=== PATIENT | female | born 1955 | race Caucasian/White ===

== ENCOUNTER 2016-11-25 16:13 | Emergency (ER) | payer OTHER ==
--- NOTE | 2016-11-25 17:15 | UC ---
Dizzy HPI - History Of Current Complaint Stated Complaint: EQUILIBRIUM OFF PER PATIENT Hx Obtained From: Patient ?: No Onset/Duration: Sudden Onset - This morning after being up for an hour. Was at work about 11 AM. Neck pain down the left side into the shoulder blade. Then develop lightheadedness., Still Present - Lightheadedness still present but the neck pain is better. Timing: Constant Severity Initially: Moderate Severity Currently: Mild Character: Lightheaded Aggravating Factor(s): Headache - Occipital headache tied into the neck pain., Position Change Alleviating Factor(s): Lying Down Associated Signs And Symptoms: Positive: Diaphoresis, Unsteady Gait. Negative: Nausea, Vomiting - Allergies/Home Medications Allergies/Adverse Reactions: Allergies Allergy/AdvReac Type Severity Reaction Status Date / Time Codeine Allergy Hives Verified 11/25/16 16:24 Penicillins Allergy Hives Verified 11/25/16 16:24 Home Medications: Home Medications Gabapentin CAP(*) [Neurontin 300 CAP(*)] 300 mg PO TID 11/25/16 [History Confirmed 11/25/16] Meloxicam 7.5 mg PO BID 11/25/16 [History Confirmed 11/25/16] Simvastatin [Zocor 40 MG (NF)] 40 mg PO QPM 11/25/16 [History Confirmed 11/25/16 ] Tizanidine HCl 4 mg PO DAILY 11/25/16 [History Confirmed 11/25/16] cloNIDine TAB* [Catapres 0.1 MG TAB*] 0.2 mg PO DAILY 11/25/16 [History Confirmed 11/25/16] traMADol TAB* [Ultram*] 50 mg PO Q6HR PRN 11/25/16 [History Confirmed 11/25/16] PMH/Surg Hx/FS Hx/Imm Hx Neurological History: Migraine, Other - Torticollis Other Neurological History: Torticollis - Surgical History Surgical History: Yes Surgery Procedure, Year, and Place: knee surgery. tubal. right arm surgery 2016 - Family History Known Family History: Positive: Cardiac Disease, Diabetes Negative: Hypertension - Social History Occupation: Employed Full-time Lives: With Family Alcohol Use: Rare Substance Use Type: None Smoking Status (MU): Former Smoker Have You Smoked in the Last Year: No Review of Systems Neurological: Other - unsteady gait earlier today Psychological: Anxious All Other Systems Reviewed And Are Negative: Yes Physical Exam Triage Information Reviewed: Yes Appearance: No Pain Distress, Well-Nourished, Ill-Appearing Vital Signs: Initial Vital Signs Temp 97.7 F 11/25/16 16:19 Pulse 81 11/25/16 16:19 Resp 18 11/25/16 16:19 BP 146/82 11/25/16 16:19 Pulse Ox 100 11/25/16 16:19 Vital Signs Reviewed: Yes Eyes: Positive: Conjunctiva Clear ENT Exam: Normal Neck: Positive: Tenderness @ - left cervical spinal musculature Respiratory Exam: Normal Cardiovascular: Positive: Murmur:Sys:Grade _?_/ - 2/6 Abdominal Exam: Normal Bowel Sounds: Positive: Present Musculoskeletal Exam: Normal Neurological Exam: Other - Normal heel-dunn, and heel-toe walking. Neurological: Positive: Other: - Tremor head and neck and intension tremor. Psychological Exam: Normal Skin Exam: Normal Dizzy Course/Dx - Differential Dx/Diagnosis Differential Diagnosis/HQI/PQRI: Anxiety, CVA, Hypovolemia, Transient Ischemic Attack Provider Diagnoses: TIA. Headache - Physician Notifications Discussed Patient Care With: Nimco Bueno - Agreed to accept transfer Time Discussed With Above Provider: 17:33 Instructed by Provider To: Transfer - [facility] for further evaluation Discharge - Discharge Plan Condition: Guarded Disposition: TRANS HIGHER LVL OF CARE FAC Patient Education Materials: Transient Ischemic Attack (ED)
[2016-11-25 17:34] VITALS: BP 148/89
== END 2016-11-25 17:44 | disposition short-term general hospital (02) ==
LOC: UCCORT 16:13
DX: G45.9 Transient cerebral ischemic attack, unspecified (principal); R51 Headache; M54.2 Cervicalgia; M25.512 Pain in left shoulder; R42 Dizziness and giddiness; R26.81 Unsteadiness on feet; R61 Generalized hyperhidrosis; Z88.5 Allergy status to narcotic agent; Z88.0 Allergy status to penicillin; Z87.891 Personal history of nicotine dependence
CPT/HCPCS: 93005; 99213; G0463

== ENCOUNTER 2019-06-06 10:59 | Inpatient (IN) | payer OTHER ==
--- NOTE | 2019-05-30 13:25 | HP ---
HISTORY AND PHYSICAL: DATE OF ADMISSION/SURGERY: 06/06/19 DATE OF OFFICE VISIT: 05/30/19 SURGEON: Jody Gomez MD * (DICTATED BY RIGOBERTO PERKINS) PROCEDURE: Left total knee arthroplasty. CHIEF COMPLAINT: Left knee pain. HISTORY OF PRESENT ILLNESS: Ms. Elizalde is a 63-year-old female with end-stage osteoarthritis of the left knee. She has failed conservative treatment and elected to proceed with a left total knee arthroplasty. PAST MEDICAL HISTORY: High cholesterol, spasmodic torticollis, and a history of DVT 20 years ago. PAST SURGICAL HISTORY: Left knee arthroscopy and tubal ligation. CURRENT MEDICATIONS: 1. Tramadol 50 mg every 4 hours as needed. 2. Stool softener. 3. Clonidine 0.2 mg twice a day. 4. Simvastatin 40 mg daily. 5. Clonazepam 1 mg twice a day. 6. Baclofen 10 mg every 8 hours as needed. 7. Sumatriptan 50 mg as needed. 8. Meloxicam 7.5 mg twice a day. 9. Vitamin D. 10. Calcium. ALLERGIES: To PENICILLIN, CODEINE, HYDROCODONE, TOPIRAMATE, and PREDNISONE. FAMILY HISTORY: Diabetes, coronary artery disease, cancer, RA, and Alzheimer's. SOCIAL HISTORY: She is a 63-year-old female. She lives with her boy friend. She does not smoke or use drugs. She uses alcohol occasionally. REVIEW OF SYSTEMS: A complete 14-point review of systems was reviewed with the patient. It was positive for history of a DVT. She denies a history of PE, hepatitis, HIV, or anesthesia problems. PHYSICAL EXAMINATION GENERAL: She is well developed, well nourished, in no acute distress. VITAL SIGNS: She stands 62-1/2 inches tall, weighs 128 pounds. Her blood pressure is 110/68 and heart rate is 60. HEENT: Normocephalic, atraumatic. NECK: Supple. No palpable lymph nodes. PULMONARY: The lungs are clear to auscultation bilaterally. CARDIO: Regular rate and rhythm. Strong S1, S2. ABDOMEN: Soft, nontender, nondistended. NEUROLOGICAL: She is alert and oriented x3. MUSCULOSKELETAL: Left lower extremity: The skin is intact. There are no open wounds or abrasions. There is moderate effusion of the left knee joint. She has some tenderness along the medial joint line. Range of motion is 10 to 120 degrees of flexion. She is able to dorsiflex and plantarflex, has 2+ dorsalis pedis pulse and intact sensation. ASSESSMENT AND PLAN: Ms. Elizalde is a 63-year-old female with end-stage osteoarthritis of the left knee. She has failed conservative treatment and elected to proceed with a left total knee arthroplasty. The surgery is scheduled for 06/06/[address] Gomez discussed the risks and benefits of the surgery at today's visit and all of her questions were answered. She will follow up with Dr. Gomez 2 weeks after the surgery. RIGOBERTO PERKINS [id number]/CPS #: [id number] MTDD
[~2019-06-06 10:59] MED LIST: Buffered Lidocaine 1% SYRIN* 1 ML/SYRINGE INTRADERM ONE; Dexamethasone TAB* 4 MG PO ONE; DiMENhydriNATE IV* 50 MG/ML VIAL IV PUSH PRN; Famotidine IV* 10 MG/ML 2 ML (20 mg) IV ONE; HYDROmorphone INJ1* 1 MG/ML SYRINGE IV PRN; Lactated Ringers 1000 ML Bag* 1,000 ML IV SCH; Naloxone* 0.4 MG/ML 1 ML VIAL IV PRN; Ondansetron ODT TAB* 4 MG PO ONE; PROCHLORPERAZINE INJ 5 MG/ML 2 ML VIAL IV PRN; fentaNYL* 50 MCG/ML 2 ML VIAL (100 MCG VIAL) IV PRN; oxyCODONE TAB* 5 MG TAB PO PRN
--- OUTSIDE RECORDS SUMMARY | 2019-06-06 11:03 | XMS REPORT | Continuity of Care Document ---
:1955 External Reference #:[id number] Author Name Jody Gomez M.D. (transmitted by agent of provider Sofia Chung) Address [address] [place] [id number] Care Team Providers Name Role Phone Muriel Thakur RPA - Medical Care Team Information Hog Cutter KamariShana Bennett MD - Care Team Information Hog Cutter Neurology Beny Chow M.D. - Rheumatology Care Team Information Hog Cutter [phone] Waleska Zavala MD - Interventional Pain Care Team Information Hog Cutter [phone] Medicine Waleska Zavala MD - Interventional Pain Care Team Information Hog Cutter Medicine Problems Active Problems Provider Date Hyperlipidemia Muriel Thakur, PA Onset: 11/19/2018 Spasmodic torticollis Muriel Thakur PA Onset: 11/19/2018 Note: cervical dystonia, Botox History of polyp of colon Muriel Thakur, PA Onset: 11/19/2018 Note: hyperplastic 2009 Raised antinuclear antibody Muriel Thakur, PA Onset: 11/19/2018 Note: Undifferentiated CTD 2013 Deep venous thrombosis of lower extremity Muriel Thakur PA Onset: 2018 Note: (L) side, while on HRT Degenerative joint disease involving multiple Muriel Thakur, PA Onset: joints Note: ankles, knees, cervical spine Headache Muriel Thakur, PA Onset: 11/19/2018 Note: Occipital neuralgia, migraine Menopausal flushing Muriel Thakur PA Onset: 11/19/2018 Note: clonidine Localized, primary osteoarthritis Jody Gomez M.D. Onset: 05/02/2019 Social History Type Date Description Comments Sex Unknown ETOH Use Occasionally consumes alcohol Tobacco Use Start: Unknown End: Patient is a former smoker Recreational Drug Use Denies Drug Use Smoking Status Reviewed: 05/30/19 Patient is a former smoker Exercise Type/Frequency Does not exercise Allergies, Adverse Reactions, Alerts Active Allergies Reaction Severity Comments Date Penicillins rash 07/16/2018 Codeine Hives 07/16/2018 Hydrocodone Hives 07/16/2018 Topiramate 11/19/2018 Prednisone 02/05/2019 Medications Active Medications SIG Qnty Indications Ordering Provider Date Cipro 1 tab by mouth 14tabs Jermaine 05/21/2019 500mg Tablets twice a day MD Cody Miralax 17 gm every day 510gm K59.00 Jermaine 05/19/2019 3350NF Powder mixed w/ 8 oz MD Cody water/juice daily prn. Probiotic 1 by mouth every 90caps K59.00 Jermaine 05/19/2019 Acidophilus day MD Cody Capsules Colace 2-3 tabs by mouth 90caps K59.00 Jermaine 05/19/2019 100mg Capsules with fiber cereal MD Cody q Am as needed Tramadol HCL Take 1 Tablet By 120tabs Jermaine 07/16/2018 50mg Mouth Every 4 MD Cody Tablets Hours as Needed For Pain* Maximum Daily Dose Is 6 Tablets* Clonidine HCL Take 1 Tablet By 180tabs Jermaine 07/16/2018 0.2mg Mouth Twice Daily MD Cody Tablets Simvastatin Take 1 Tablet By 90tabs Jermaine 07/16/2018 40mg Mouth Every Day MD Cody Tablets Clonazepam for dystonia Waleska Zavala MD 1mg bid. Tablets Baclofen take one tablet Waleska Zavala MD 10mg Tablets by mouth every 8 hours as needed Sumatriptan take one tablet Waleska Zavala MD Succinate by mouth at the 50mg start of the Tablets headache; may repeat the dose in 2 hours if needed Meloxicam 1 by mouth twice Beny Chow, 7.5mg a day M.D. Tablets Vitamin D 2000 Iu daily Unknown Calcium + D Unknown Immunizations CPT Code Status Date Vaccine Reaction Lot # [id number] Given 02/05/2019 Pneumonia Vaccine risk & benefits [id number] pneumovax discussed [id number] Given 02/05/2019 Tdap - risk & benefits Tdap/2E3EH/Private Tetanus/Diptheria/Ac discussed ellular Pertussis Vital Signs Date Vital Result Comment 05/30/2019 8:20am Height 62.5 inches 5'2.50" Weight 128.00 lb Heart Rate 60 /min BP Systolic 110 mmHg BP Diastolic 68 mmHg Respiratory Rate 12 /min Body Temperature 97.5 F Pain Level 5 BMI (Body Mass Index) 23.0 kg/m2 05/19/2019 9:59am Height 63.25 inches 5'3.25" Weight 129.12 lb Heart Rate 64 /min BP Systolic Sitting 108 mmHg BP Diastolic Sitting 68 mmHg O2 % BldC Oximetry 93 % BMI (Body Mass Index) 22.7 kg/m2 Results Test Acquired Date Facility Test Result H/L Range Note Urinalysis Profile 05/29/2019 [facility] Urine Color Yellow [address] [place] [address] [phone] Urine Appearance Turbid Urine Specific [place] 1.028 Normal 1.010-1.030 Urine pH 5.0 Normal 5-9 Urine Urobilinogen Negative Negative Urine Ketones Negative Negative Urine Protein Negative Negative Urine Leukocytes Negative Negative Urine Blood Negative Negative Urine Nitrite Negative Negative Urine Bilirubin Negative Negative Urine Glucose Negative Negative CBC W/Auto 05/20/2019 [facility] White Blood 3.2 10^3/uL Low 3.5-10.[address] [place] [address] [phone] Red Blood Count 4.36 10^6/uL Normal 3.70-4.87 Hemoglobin 13.5 g/dL Normal 12.0-16.0 Hematocrit 39 % Normal 35-47 Mean Corpuscular Volume 90 fL Normal 80-97 Mean Corpuscular Hemoglobin 31 pg Normal 27-31 Mean Corpuscular HGB Conc 35 g/dL Normal 31-36 Red Cell Distribution Width 13 % Normal 10-15 Platelet Count 206 10^3/uL Normal 150-450 Mean Platelet Volume 8.6 fL Normal 7.4-10.4 Abs Neutrophils 1.5 10^3/uL Normal 1.5-7.7 Abs Lymphocytes 1.3 10^3/uL Normal 1.0-4.8 Abs Monocytes 0.3 10^3/uL Normal 0-0.8 Abs Eosinophils 0.1 10^3/uL Normal 0-0.6 Abs Basophils 0.0 10^3/uL Normal 0-0.2 Abs Nucleated RBC 0.0 10^3/uL Granulocyte % 45.8 % Lymphocyte % 38.9 % Monocyte % 10.1 % Eosinophil % 3.9 % Basophil % 1.3 % Nucleated Red Blood Cells % 0.0 CMP Panel 05/20/2019 [facility] Sodium 142 mmol/L Normal 135- 145 [address] [place] [address] [phone] Potassium 4.0 mmol/L Normal 3.5-5.0 Chloride 106 mmol/L Normal 101-111 Co2 Carbon Dioxide 31 mmol/L Normal 22-32 Anion Gap 5 mmol/L Normal 2-11 Glucose 93 mg/dL Normal 70-100 Blood Urea Nitrogen 20 mg/dL Normal 6-24 Creatinine 0.85 mg/dL Normal 0.51-0.95 BUN/Creatinine Ratio 23.5 High 8-20 Calcium 10.0 mg/dL Normal 8.6-10.3 Total Protein 6.3 g/dL Low 6.4-8.9 Albumin 4.3 g/dL Normal 3.2-5.2 Globulin 2.0 g/dL Normal 2-4 Albumin/Globulin Ratio 2.2 Normal 1-3 Total Bilirubin 0.40 mg/dL Normal 0.2-1.0 Alkaline Phosphatase 62 U/L Normal 34-104 Alt 14 U/L Normal 7-52 Ast 14 U/L Normal 13-39 Egfr Non- 67.8 >60 Egfr 82.0 >60 1 Urinalysis Profile 05/19/2019 [facility] Urine Color Yellow [address] [place] [address] [phone] Urine Appearance Cloudy Urine Specific [place] 1.028 Normal 1.010-1.030 Urine pH 5.0 Normal 5-9 Urine Urobilinogen Negative Negative Urine Ketones Negative Negative Urine Protein Negative Negative Urine Leukocytes Trace Abnormal Negative Urine Blood Negative Negative Urine Nitrite Negative Negative Urine Bilirubin Negative Negative Urine Glucose Negative Negative Urine White Blood Cell Trace(0-5/hpf) Absent Urine Red Blood Cell Absent Absent Urine Bacteria 2+ Abnormal Absent Urine Squamous Epithelial Cell Present Abnormal Absent Urine Hyaline Casts Present Abnormal Absent Urine Calcium Oxalate Cryst Present Abnormal Absent Urine Culture And 05/19/2019 [facility] Urine Culture SEE RESULT [address] [place] [address] [phone] Lipid Panel 04/16/2019 [facility] Triglycerides 67 mg/dL [address] [place] [address] [phone] Cholesterol 182 mg/dL 4 HDL Cholesterol 73.7 mg/dL 5 LDL Cholesterol 95 mg/dL 6 CMP Panel 04/16/2019 [facility] Sodium 144 mmol/L Normal 135- [address] [place] [address] [phone] Potassium 4.0 mmol/L Normal 3.5-5.0 Chloride 108 mmol/L Normal 101-111 Co2 Carbon Dioxide 33 mmol/L High 22-32 Anion Gap 3 mmol/L Normal 2-11 Glucose 80 mg/dL Normal 70-100 Blood Urea Nitrogen 15 mg/dL Normal 6-24 Creatinine 0.82 mg/dL Normal 0.51-0.95 BUN/Creatinine Ratio 18.3 Normal 8-20 Calcium 9.4 mg/dL Normal 8.6-10.3 Total Protein 5.6 g/dL Low 6.4-8.9 Albumin 3.9 g/dL Normal 3.2-5.2 Globulin 1.7 g/dL Low 2-4 Albumin/Globulin Ratio 2.3 Normal 1-3 Total Bilirubin 0.50 mg/dL Normal 0.2-1.0 Alkaline Phosphatase 58 U/L Normal 34-104 Alt 22 U/L Normal 7-52 Ast 15 U/L Normal 13-39 Egfr Non- 70.6 >60 Egfr 85.5 >60 7 CBC W/Auto 04/16/2019 [facility] White Blood 4.5 10^3/uL Normal 3.5-10.[address] [place] [address] [phone] Red Blood Count 4.24 10^6/uL Normal 3.70-4.87 Hemoglobin 12.9 g/dL Normal 12.0-16.0 Hematocrit 38 % Normal 35-47 Mean Corpuscular Volume 90 fL Normal 80-97 Mean Corpuscular Hemoglobin 31 pg Normal 27-31 Mean Corpuscular HGB Conc 34 g/dL Normal 31-36 Red Cell Distribution Width 13 % Normal 10-15 Platelet Count 218 10^3/uL Normal 150-450 Mean Platelet Volume 8.6 fL Normal 7.4-10.4 Abs Neutrophils 2.1 10^3/uL Normal 1.5-7.7 Abs Lymphocytes 1.9 10^3/uL Normal 1.0-4.8 Abs Monocytes 0.3 10^3/uL Normal 0-0.8 Abs Eosinophils 0.2 10^3/uL Normal 0-0.6 Abs Basophils 0.0 10^3/uL Normal 0-0.2 Abs Nucleated RBC 0.0 10^3/uL Granulocyte % 46.2 % Lymphocyte % 42.5 % Monocyte % 7.2 % Eosinophil % 3.6 % Basophil % 0.5 % Nucleated Red Blood Cells % 0.1 Laboratory 04/16/2019 [facility] TSH (Thyroid 2.42 Normal 0.34 -5.60 test finding [address] Stim Horm) mcIU/[place] [address] [phone] Vitamin D Total 25(Oh) 34.3 ng/mL Normal 20-50 8 Cytology 02/05/2019 [facility] Cytology SEE RESULT BELOW , [address] [place] [address] [phone] PDFReport SEE IMAGE 1 Because ethnic data is not always readily available, this report includes an eGFR for both -Americans and non- Americans. The National Kidney Disease Education Program (NKDEP) does not endorse the use of the MDRD equation for patients that are not between the ages of 18 and 70, are , have extremes of body size, muscle mass, or nutritional status, or are non- or non-. According to the National Kidney Foundation, irrespective of diagnosis, the stage of the disease is based on the level of kidney function: Stage Description GFR(mL/min/1.73 m(2)) 1 Kidney damage with normal or decreased GFR 90 2 Kidney damage with mild decrease in GFR 60-89 3 Moderate decrease in GFR 30-59 4 Severe decrease in GFR 15-29 5 Kidney failure <15 (or dialysis) 2 SEE RESULT BELOW Name: MANDY ELIZALDE : [address]: Muriel FRANKLIN Acct: [id number] Unit: [id number] AGE: 63 Location: [facility] Re05/19/19 SEX: F Status: REG REF SPEC: [id number] PATRICK: 05/19/19-[address]: Muriel FRANKLIN REQ: [id number] RECD: 05/19/19-1440 STATUS: COMP _ SOURCE: URINE SPDESC: ORDERED: Urine Culture COMMENTS: [id number] Urine Source: Random Procedure Result Reported Site Urine Culture Final 02/915 ML Organism 1 ESCHERICHIA COLI Ramer Count 75-100,000 (Many) CFU/ML 1. ESCHERICHIA COLI M.I.C. RX --------- ------ Ampicillin <=2 S Cefazolin <=4 S Cefepime <=1 S Ceftriaxone <=1 S Ciprofloxacin <=0.25 S Gentamicin <=1 S Levofloxacin <=0.12 S Meropenem <=0.25 S Nitrofurantoin <=16 S Tetracycline >=16 R Pipercillin/Tazobactam <=4 S Trimethoprim/Sulfamethoxazole <=20 S Amoxicillin/Clavulanic Acid <=2 S Aztreonam <=1 S Contact the Microbiology Department for any additional antibiotic reporting. * ML - Main Lab . END OF REPORT DEPARTMENT OF PATHOLOGY, [address] [place] [address] Keenan Magana M.D. Director [facility] # [id number] 3 Desirable: <150 Borderline High: 150-199 High: 200-499 Very High: >500 4 Desirable: <200 Borderline High: 200-239 High: >239 5 Low: <40 Desirable: 40-60 High: >60 6 Desirable: <100 Near Optimal: 100-129 Borderline High: 130-159 High: 160-189 Very High: >189 7 Because ethnic data is not always readily available, this report includes an eGFR for both -Americans and non- Americans. The National Kidney Disease Education Program (NKDEP) does not endorse the use of the MDRD equation for patients that are not between the ages of 18 and 70, are , have extremes of body size, muscle mass, or nutritional status, or are non- or non-. According to the National Kidney Foundation, irrespective of diagnosis, the stage of the disease is based on the level of kidney function: Stage Description GFR(mL/min/1.73 m(2)) 1 Kidney damage with normal or decreased GFR 90 2 Kidney damage with mild decrease in GFR 60-89 3 Moderate decrease in GFR 30-59 4 Severe decrease in GFR 15-29 5 Kidney failure <15 (or dialysis) 8 Total 25-Hydroxyvitamin D2 and D3 (25-OH-VitD) <10 ng/mL (severe deficiency) 10-19 ng/mL (mild to moderate deficiency) 20-50 ng/mL (optimum levels) 51-80 ng/mL (increased risk of hypercalciuria) >80 ng/mL (toxicity possible) 9 [id number] 10 SEE RESULT BELOW Name: MANDY ELIZALDE : [address]: Muriel FRANKLIN Acct: [id number] Unit: [id number] AGE: 63 Location: [facility] Re02/05/19 SEX: F Status: REG REF SPEC: [id number] PATRICK: 02/05/1958 [facility] DR: Muriel FRANKLIN REQ: [id number] RECD: 02/05/19 STATUS: SOUT _ ORDERED: TP IMAGE ANALYS, HPV/Thin Prep COMMENTS: [id number] FINAL DIAGNOSIS Negative for Intraepithelial lesion or Malignancy HPV RESULTS Date Time Test Result Flag (u) Normal Range 02/05/19 1000 HPV KATERINA Negative Negative The high-risk HPV types detected by the assay include: 16, 18, 31, 33, 35, 39, 45, 51, 52, 56, 58, 59, 66, and 68. SPECIMEN(S) RECEIVED A. Ectocervical/Endocervical CYTOLOGY ADEQUACY Specimen Adequacy: Satisfactory of evaluation Transformation zone component identified CONTINUED ON NEXT PAGE DEPARTMENT OF PATHOLOGY, [address] [place] [address] Keenan Magana M.D. Director [facility] # [id number] CYTOLOGY PATIENT INFORMATION Patient Information: HPV: High risk HPV RNA testing regardless of pap results. Actual Specimen Date: 02/05/19 LMP If Unknown: 2003 ablation ?: N Post Menopausal?: Y Hysterectomy?: N Previous Abnormal Pap Smears?:N Signed by and Reported on: LYNN Garcia (ASCP) 1606 This Pap test was evaluated with the assistance of the [employer] Test Imaging System. Due to cytologic findings at the metal storage worker microscope, comprehensive manual rescreening by a Information Officer may be required. The Pap Smear is a screening test designed to aid in the detection of premalignant and malignant conditions of the uterine cervix. It is not a diagnostic procedure and should not be used as the sole means of detecting cervical cancer. Both false- positive and false- negative reports do occur. Depending on your risk status, a Pap smear should be obtained and evaluated every 1-3 years. END OF REPORT DEPARTMENT OF PATHOLOGY, [address] [place] [address] Keenan Magana M.D. Director [facility] # [id number] Procedures Date Code Description Status 04/16/2019 91545 Xray Knee 3 Views Completed 12/16/2018 [id number] Mammogram Completed 10/08/2017 [id number] Mammogram Completed 10/03/2016 [id number] Mammogram Completed 10/01/2015 [id number] Mammogram Completed 06/16/2009 [id number] Colonoscopy Completed Medical Devices Description No Information Available Encounters Type Date Location Provider Dx Diagnosis Office Visit 05/02/2019 [facility] Opal Pantoja7.12 Unilateral primary 9:00a at [facility] osteoarthritis, left knee M25.562 Pain in left knee M25.462 Effusion, left knee Office Visit 04/16/2019 Wendy Anthony M17.12 Unilateral primary 9:30a Orthopedics at [facility] osteoarthritis, left Lev knee M06.862 Other specified rheumatoid arthritis, left knee M25.562 Pain in left knee Office Visit 02/05/2019 9:00a [employer] Primary Muriel Z00.00 Encntr for Care RIGOBERTO Thkaur general adult medical exam w/o abnormal findings G24.3 Spasmodic torticollis E78.5 Hyperlipidemia, unspecified Z23 Encounter for immunization Z12.4 Encounter for screening for malignant neoplasm of cervix Assessments Date Code Description Provider 05/30/2019 M25.562 Pain in left knee Jody Gomez M.D. 05/30/2019 M25.462 Effusion, left knee Jody Gomez M.D. 05/19/2019 Z01.818 Encounter for other preprocedural examination RIGOBERTO Sellers 05/19/2019 M17.12 Unilateral primary osteoarthritis, left knee Muriel RIGOBERTO Thakur 05/19/2019 M06.4 Inflammatory polyarthropathy RIGOBERTO Sellers 05/19/2019 G24.3 Spasmodic torticollis RIGOBERTO Sellers 05/19/2019 K59.00 Constipation, unspecified Muriel Thakur, RIGOBERTO 05/19/2019 R82.81 Pyuria RIGOBERTO Sellers 05/02/2019 M17.12 Unilateral primary osteoarthritis, left knee Jody Gomez M.D. 05/02/2019 M25.562 Pain in left knee Jody Gomez M.D. 05/02/2019 M25.462 Effusion, left knee Jody Gomez M.D. 04/16/2019 M17.12 Unilateral primary osteoarthritis, left knee Jason Hollingsworth MD 04/16/2019 M06.862 Other specified rheumatoid arthritis, left Jason Hollingsworth MD knee 04/16/2019 M25.562 Pain in left knee Jason Hollingsworth MD 02/05/2019 Z00.00 Encounter for general adult medical RIGOBERTO Sellers examination without abnormal findings 02/05/2019 G24.3 Spasmodic torticollis RIGOBERTO Sellers 02/05/2019 E78.5 Hyperlipidemia, unspecified RIGOBERTO Sellers 02/05/2019 Z23 Encounter for immunization RIGOBERTO Sellers 02/05/2019 Z12.4 Encounter for screening for malignant RIGOBERTO Sellers neoplasm of cervix Plan of Treatment Future Appointment(s):06/23/2019 11:15 am - Jody Gomez M.D. at [facility] at Nrmmiy4011/17/2019 10:30 am - RIGOBERTO Sellers at [facility]06/06/2019 12:30 pm - Jody Gomez M.D. at [facility] at Meprwt5005/2019 9:00 am - RIGOBERTO Sellers at [facility]05/30/2019 - Jody Gomez M.D.M25.562 Pain in left kneeFollow up:Follow up: 2 weeks after nyjdtuyI59.462 Effusion, left knee Functional Status Description No Information Available Mental Status Description No Information Available Referrals Description No Information Available
--- OUTSIDE RECORDS SUMMARY | 2019-06-06 11:03 | XMS REPORT | Continuity of Care Document ---
:1955 External Reference #:[id number] Author Name RIGOBERTO Sellers (transmitted by agent of provider Magaly Diallo) Address [address] [place] [address] Care Team Providers Name Role Phone Muriel Thakur RPA - Medical Care Team Information Senior Mechanical Estimator Shana Saenz MD - Care Team Information Senior Mechanical Estimator [phone] Neurology Beny Chow M.D. - Rheumatology Care Team Information Senior Mechanical Estimator Waleska Zavala MD - Interventional Pain Care Team Information Senior Mechanical Estimator Medicine Waleska Zavala MD - Interventional Pain Care Team Information Senior Mechanical Estimator [phone] Medicine Problems Active Problems Provider Date Hyperlipidemia RIGOBERTO Sellers Onset: 11/19/2018 Spasmodic torticollis RIGOBERTO Sellers Onset: 11/19/2018 Note: cervical dystonia, Botox History of polyp of colon Muriel Thakur PA Onset: 11/19/2018 Note: hyperplastic 2009 Raised antinuclear antibody Muriel Thakur PA Onset: 11/19/2018 Note: Undifferentiated CTD 2013 Deep venous thrombosis of lower extremity RIGOBERTO Sellers Onset: 2018 Note: (L) side, while on HRT Degenerative joint disease involving multiple Muriel Thakur PA Onset: joints Note: ankles, knees, cervical spine Headache Muriel Thakur PA Onset: 11/19/2018 Note: Occipital neuralgia, migraine Menopausal flushing Muriel Thakur PA Onset: 11/19/2018 Note: clonidine Localized, primary osteoarthritis Jody Gomez M.D. Onset: 05/02/2019 Social History Type Date Description Comments Sex Unknown ETOH Use Occasionally consumes alcohol Tobacco Use Start: Unknown End: Patient is a former smoker Recreational Drug Use Denies Drug Use Smoking Status Reviewed: 05/19/19 Patient is a former smoker Exercise Type/Frequency Does not exercise Allergies, Adverse Reactions, Alerts Active Allergies Reaction Severity Comments Date Penicillins rash 07/16/2018 Codeine Hives 07/16/2018 Hydrocodone Hives 07/16/2018 Topiramate 11/19/2018 Prednisone 02/05/2019 Medications Active Medications SIG Qnty Indications Ordering Provider Date Miralax 17 gm every day 510gm K59.00 [...] Code Status Date Vaccine Reaction Lot # 79662 Given 02/05/2019 Pneumonia Vaccine risk & benefits [id number] pneumovax discussed 23 08399 Given 02/05/2019 Tdap - risk & benefits Tdap/2E3EH/Private Tetanus/Diptheria/Ac discussed ellular Pertussis Vital Signs Date Vital Result Comment 05/19/2019 9:59am Height 63.25 inches 5'3.25" Weight 129.12 lb Heart Rate 64 /min BP Systolic Sitting 108 mmHg BP Diastolic Sitting 68 mmHg O2 % BldC Oximetry 93 % BMI (Body Mass Index) 22.7 kg/m2 05/02/2019 9:06am Height 63.25 inches 5'3.25" Weight 126.00 lb Heart Rate 42 /min BP Systolic 100 mmHg BP Diastolic 62 mmHg Respiratory Rate 12 /min Body Temperature 96.4 F Pain Level 2 BMI (Body Mass Index) 22.1 kg/m2 Results Test Acquired Date Facility Test Result H/L Range Note Lipid Panel 04/16/2019 [facility] Triglycerides 67 mg/dL 1 [address] [place] [address] [phone] Cholesterol 182 mg/dL 2 HDL Cholesterol 73.7 mg/dL 3 LDL Cholesterol 95 mg/dL 4 CMP Panel 04/16/2019 [facility] Sodium 144 mmol/L Normal 135- 145 [address] [place] [address] [phone] Potassium 4.0 mmol/L Normal 3.5-5.0 Chloride 108 [...] Egfr Non- 70.6 >60 Egfr 85.5 >60 5 CBC W/Auto 04/16/2019 [facility] White Blood 4.5 10^3/uL Normal 3.5-10.[address] [place] [address] [phone] Red Blood Count 4.24 10^6/uL Normal 3.70-4.87 [...] Red Blood Cells % 0.1 Laboratory 04/16/2019 [facility] TSH (Thyroid 2.42 Normal 0.34 -5.60 test finding [address] Stim Horm) mcIU/[place] [address] [phone] Vitamin D Total 25(Oh) 34.3 ng/mL Normal 20-50 6 Cytology 02/05/2019 [facility] Cytology SEE RESULT BELOW 7 , [address] [place] [address] [phone] PDFReport SEE IMAGE 1 Desirable: <150 Borderline High: 150-199 High: 200-499 Very High: >500 2 Desirable: <200 Borderline High: 200-239 High: >239 3 Low: <40 Desirable: 40-60 High: >60 4 Desirable: <100 Near Optimal: 100-129 Borderline High: 130-159 High: 160-189 Very High: >189 5 Because ethnic data is not always readily [...] 15-29 5 Kidney failure <15 (or dialysis) 6 Total 25-Hydroxyvitamin D2 and D3 (25-OH-VitD) <10 ng/mL (severe deficiency) 10-19 ng/mL (mild to moderate deficiency) 20-50 ng/mL (optimum levels) 51-80 ng/mL (increased risk of hypercalciuria) >80 ng/mL (toxicity possible) 7 [id number] 8 SEE RESULT BELOW Name: MANDY ELIZALDE : [address]: Muriel FRAKNLIN Acct: [id number] Unit: [id number] AGE: 63 Location: [facility] Re02/05/19 SEX: F Status: REG REF SPEC: [id number] PATRICK: 02/05/190959 SUBM DR: Muriel FRANKLIN REQ: [id number] RECD: 02/05/19 STATUS: SOUT _ ORDERED: TP IMAGE ANALYS, HPV/Thin Prep COMMENTS: [id number] FINAL DIAGNOSIS Negative for Intraepithelial lesion or [...] CONTINUED ON NEXT PAGE DEPARTMENT OF PATHOLOGY, [address] [place] [address] Keenan Magana M.D. Director [facility] # [id number] CYTOLOGY PATIENT INFORMATION Patient Information: HPV: High risk HPV RNA testing regardless of pap results. Actual Specimen Date: 02/05/19 LMP If Unknown: 2003 ablation ?: N Post Menopausal?: Y Hysterectomy?: N Previous Abnormal Pap Smears?:N Signed by and Reported on: LYNN Garcia (ASCP) 1600 This Pap test was evaluated with the assistance of the [employer]Prep Test Imaging System. Due to cytologic findings at the clinical informatics manager microscope, comprehensive manual rescreening by a Staffing Consultant may be required. The Pap Smear is [...] years. END OF REPORT DEPARTMENT OF PATHOLOGY, [address] [place] [address] Keenan Magana M.D. Director [facility] # [id number] Procedures Date Code Description Status 04/16/2019 93954 Xray Knee 3 Views Completed 12/16/2018 [id number] Mammogram Completed 10/08/2017 [id number] Mammogram Completed 10/03/2016 [id number] Mammogram Completed 10/01/2015 [id number] Mammogram Completed 06/16/2009 [id number] Colonoscopy Completed Medical Devices Description No Information Available Encounters Type Date Location Provider Dx Diagnosis Office Visit 05/02/2019 [facility] Jody Gomez M17.12 Unilateral primary 9:00a at [facility] osteoarthritis, left knee M25.562 Pain in left knee M25.462 Effusion, left knee Office Visit 04/16/2019 Wendy Anthony M17.12 Unilateral primary 9:30a Orthopedics at [facility] [place] osteoarthritis, left [place] knee M06.862 Other specified rheumatoid arthritis, left knee M25.562 Pain in left knee Office Visit 02/05/2019 9:00a [facility] Muriel Z00.00 Encntr for Care RIGOBERTO Thakur general adult medical exam w/o abnormal findings G24.3 Spasmodic torticollis E78.5 Hyperlipidemia, unspecified Z23 Encounter for immunization Z12.4 Encounter for screening for malignant neoplasm of cervix Assessments Date Code Description Provider 05/19/2019 Z01.818 Encounter for other preprocedural examination RIGOBERTO Sellers 05/19/2019 M17.12 Unilateral primary osteoarthritis, left knee Muriel Ofe, PA 05/19/2019 M06.4 Inflammatory polyarthropathy Muriel Thakur, PA 05/19/2019 G24.3 Spasmodic torticollis Muriel Ofe, PA 05/19/2019 K59.00 Constipation, unspecified Muriel Ofe, PA 05/02/2019 M17.12 Unilateral primary osteoarthritis, left knee [...] without abnormal findings 02/05/2019 G24.3 Spasmodic torticollis Muriel Thakur, PA 02/05/2019 E78.5 Hyperlipidemia, unspecified Muriel Thakur, RIGOBERTO 02/05/2019 Z23 Encounter for immunization RIGOBERTO Sellers 02/05/2019 Z12.4 Encounter for screening for malignant RIGOBERTO Sellers neoplasm of cervix Plan of Treatment Future Appointment(s):11/17/2019 10:30 am - RIGOBERTO Sellers at [facility]05/30/2019 8:30 am - Jody Gomez M.D. at [facility] at [id number] 12:30 pm - Jody Gomez M.D. at [facility] at Owxbbk9502/09/2020 9:00 am - RIGOBERTO Sellers at [facility]05/19/2019 - Muriel Thakur PAZ01.818 Encounter for other preprocedural cpbgsfokzquM63.12 Unilateral primary osteoarthritis, left kneeNew Labs:CBC W/Auto Diff, Ordered: 05/19/19M06.4 Inflammatory polyarthropathyNew Labs:CMP Panel, Ordered: Comments:UCTD, followed by rheumatology, Ron Chow MDG24.3 Spasmodic torticollisComments:Botox treatment has been initiated, Waleska Zavala MD @ [facility] &amp ; WOther treatments managed by Dr Zavala >> clonazepam, sumatriptan, zyexyghbV07.00 Constipation, unspecifiedNew Medication:Miralax 3350 NF - 17 gm every day mixed w/ 8 oz water/juice daily prn.Probiotic Acidophilus - 1 by mouth every dayColace 100 mg - 2-3 tabs by mouth with fiber cereal q Am as neededAllComments:Forms completed. DMV parking and Health Care ProxyMOLST form discussed/given for discussion with family Functional Status Description No Information Available Mental Status Description No Information Available Referrals Description No Information Available
--- OUTSIDE RECORDS SUMMARY | 2019-06-06 11:04 | XMS REPORT | Continuity of Care Document ---
:1955 External Reference #:[id number] Author Name Jody Gomez M.D. (transmitted by agent of provider Mira Jackson) Address [address] [place] [address] [place] [address] Care Team Providers Name Role Phone Muriel Thkaur RPA - Medical Care Team Information [employer]fgrass Management Professor Kamari-Shana Denny MD - Care Team Information [employer] Management Professor [phone] Neurology Beny Chow M.D. - Rheumatology Care Team Information Turf[employer] Management Professor [phone] Waleska Zavala MD - Interventional Pain Care Team Information Turfgrass Management Professor Medicine Problems Active Problems Provider Date Hyperlipidemia Muriel [place], [place] Onset: 11/19/2018 Spasmodic torticollis Muriel [place], [place] Onset: 11/19/2018 Note: cervical dystonia, Botox History of polyp of colon Muriel [place], [place] Onset: 11/19/2018 Note: hyperplastic 2009 Raised antinuclear antibody Muriel [place], PA Onset: 11/19/2018 Note: Undifferentiated CTD 2013 Deep venous thrombosis of lower extremity Muriel [place], PA Onset: 2018 Note: (L) side, while on HRT Degenerative joint disease involving multiple Muriel [place], PA Onset: joints Note: ankles, knees, cervical spine Headache Muriel [place], PA Onset: 11/19/2018 Note: Occipital neuralgia, migraine Menopausal flushing Muriel [place], PA Onset: 11/19/2018 Note: clonidine Localized, primary osteoarthritis Jody Gomez M.D. Onset: 05/02/2019 Social History Type Date Description Comments Sex Unknown ETOH Use Occasionally consumes alcohol Tobacco Use Start: Unknown End: Patient is a former smoker Recreational Drug Use Denies Drug Use Smoking Status Reviewed: 05/02/19 Patient is a former smoker Exercise Type/Frequency Does not exercise Allergies, Adverse Reactions, Alerts Active Allergies Reaction Severity Comments Date Penicillins rash 07/16/2018 Codeine Hives 07/16/2018 Hydrocodone Hives 07/16/2018 Topiramate 11/19/2018 Prednisone 02/05/2019 Medications Active Medications SIG Qnty Indications Ordering Provider Date Tramadol HCL 1 tablet by mouth 120tabs Jermaine 07/16/2018 50mg every 4 hours as [facility] [place] Tablets needed pain Clonidine HCL Take 1 Tablet By 180tabs [...] 7.5mg a day M.D. Tablets Vitamin D Unknown Calcium + D Unknown Immunizations CPT Code Status Date Vaccine Reaction Lot # [id number] Given 02/05/2019 Pneumonia Vaccine risk & benefits [id number] pneumovax discussed 23 34349 Given 02/05/2019 Tdap - risk & benefits Tdap/2E3EH/Private Tetanus/Diptheria/Ac discussed ellular Pertussis Vital Signs Date Vital Result Comment 05/02/2019 9:06am Height 63.25 inches 5'3.25" Weight 126.00 lb Heart Rate 42 /min BP Systolic 100 mmHg BP Diastolic 62 mmHg Respiratory Rate 12 /min Body Temperature 96.4 F Pain Level 2 BMI (Body Mass Index) 22.1 kg/m2 04/16/2019 9:28am Height 63 inches 5'3" Weight 128.00 lb Heart Rate 62 /min BP Systolic Sitting 80 mmHg BP Diastolic Sitting 60 mmHg Respiratory Rate 16 /min Pain Level 4 O2 % BldC Oximetry 97 % BMI (Body Mass Index) 22.7 kg/m2 Results Test Acquired Date Facility Test Result H/L Range Note Lipid Panel 04/16/2019 [facility] Triglycerides 67 mg/dL [address] [place] [address] [phone] Cholesterol 182 mg/dL 2 HDL Cholesterol 73.7 mg/dL 3 LDL Cholesterol 95 mg/dL 4 CMP Panel 04/16/2019 [facility] Sodium 144 mmol/L Normal 135- [address] [place] [address] [phone] Potassium 4.0 mmol/L Normal 3.5-5.0 Chloride 108 [...] Egfr 85.5 >60 5 CBC W/Auto 04/16/2019 [facility] White Blood 4.5 10^3/uL Normal 3.5-10.8 Diff [address] [place] [address] [phone] Red Blood Count 4.24 10^6/uL Normal 3.70-4.87 [...] Red Blood Cells % 0.1 Laboratory 04/16/2019 [facility] TSH (Thyroid 2.42 Normal 0.34 -5.60 test finding [address] Stim Horm) mcIU/[place] [address] [phone] Vitamin D Total 25(Oh) 34.3 ng/mL Normal 20-50 6 Cytology 02/05/2019 [facility] Cytology SEE RESULT BELOW 7 , [address] [place] [address] [phone] PDFReport SEE IMAGE 1 Desirable: <150 Borderline [...] of hypercalciuria) >80 ng/mL (toxicity possible) 7 [id number] 8 SEE RESULT BELOW Name: MANDY ELIZALDE : [address]: Muriel FRANKLIN Acct: [id number] Unit: [id number] AGE: 63 Location: [facility] Re02/05/19 SEX: F Status: REG REF SPEC: [id number] PATRICK: 02/05/[address]: Muriel FRANKLIN REQ: [id number] RECD: 02/05/19 STATUS: SOUT _ ORDERED: TP IMAGE ANALYS, HPV/Thin Prep COMMENTS: [id number] FINAL DIAGNOSIS Negative for Intraepithelial lesion or [...] CONTINUED ON NEXT PAGE DEPARTMENT OF PATHOLOGY, [address] [place] [address] Keenan Magana M.D. Director [facility] # [id number] CYTOLOGY PATIENT INFORMATION Patient Information: HPV: High risk HPV RNA testing regardless of pap results. Actual Specimen Date: 02/05/19 LMP If Unknown: 2003 ablation ?: N Post Menopausal?: Y Hysterectomy?: N Previous Abnormal Pap Smears?:N Signed by and Reported on: LYNN Garcia (ASCP) 1608 This Pap test was evaluated with the assistance of the Enliven Marketing TechnologiesPrep Test Imaging System. Due to cytologic findings at the advice clerk microscope, comprehensive manual rescreening by a Loom Cleaner may be required. The Pap Smear is [...] years. END OF REPORT DEPARTMENT OF PATHOLOGY, [address] [place] [address] Keenan Magana M.D. Director [facility] # [id number] Procedures Date Code Description Status 04/16/2019 26143 Xray Knee 3 Views Completed 12/16/2018 [id number] Mammogram Completed 10/08/2017 [id number] Mammogram Completed 10/03/2016 [id number] Mammogram Completed 10/01/2015 [id number] Mammogram Completed 06/16/2009 [id number] Colonoscopy Completed Medical Devices Description No Information Available Encounters Type Date Location Provider Dx Diagnosis Office Visit 04/16/2019 [facility] Jason Hollingsworth, M17.12 Unilateral primary 9:30a at [place] osteoarthritis, left knee M06.862 Other specified rheumatoid arthritis, left knee M25.562 Pain in left knee Office Visit 02/05/2019 9:00a [facility] Primary Muriel Z00.00 Encntr for RIGOBERTO Giraldo general adult medical exam w/o abnormal findings G24.3 Spasmodic torticollis E78.5 Hyperlipidemia, unspecified Z23 Encounter for immunization Z12.4 Encounter for screening for malignant neoplasm of cervix Assessments Date Code Description Provider 05/02/2019 M17.12 Unilateral primary osteoarthritis, left knee [...] neoplasm of cervix Plan of Treatment Future Appointment(s):02/09/2020 9:00 am - RIGOBERTO Sellers at [facility]05/02/2019 - Jody Gomez M.D.M17.12 Unilateral primary osteoarthritis, left kneeFollow up:Follow up: 7-10 days before npgetsaR58.562 Pain in left kneeM25.462 Effusion, left knee Functional Status Description No Information Available Mental Status Description No Information Available Referrals Description No Information Available
--- OUTSIDE RECORDS SUMMARY | 2019-06-06 11:04 | XMS REPORT | Continuity of Care Document ---
:1955 External Reference #:[id number] Author Name Jason Hollingsworth MD (transmitted by agent of provider Omar Galvan) Address [address] [place] [phone] Care Team Providers Name Role Phone Muriel Thakur RPA - Medical Care Team Information Director Of Catering Kamari-Shana Denny MD - Care Team Information Director Of Catering [phone] Neurology Beny Chow M.D. - Rheumatology Care Team Information Director Of Catering Waleska Zavala MD - Interventional Pain Care Team Information Director Of Catering Medicine Problems Active Problems Provider Date Hyperlipidemia Muriel [place], PA Onset: 11/19/2018 Spasmodic torticollis Murielmanan Thakur, PA Onset: 11/19/2018 Note: cervical dystonia, Botox History of polyp of colon Muriel Thakur, PA Onset: 11/19/2018 Note: hyperplastic 2009 Raised antinuclear antibody Muriel [place], PA Onset: 11/19/2018 Note: Undifferentiated CTD 2013 Deep venous thrombosis of lower extremity Muriel [place], PA Onset: 2018 Note: (L) side, while on HRT Degenerative joint disease involving multiple Muriel Buxton, PA Onset: joints Note: ankles, knees, cervical spine Headache Muriel Buxton, PA Onset: 11/19/2018 Note: Occipital neuralgia, migraine Menopausal flushing Muriel Buxton, PA Onset: 11/19/2018 Note: clonidine Social History Type Date Description Comments Sex Unknown ETOH Use Occasionally consumes alcohol Tobacco Use Start: Unknown End: Patient is a former smoker Recreational Drug Use Denies Drug Use Smoking Status Reviewed: 02/05/19 Patient is a former smoker Exercise Type/Frequency [...] Beny Chow, 7.5mg a day M.D. Tablets Immunizations CPT Code Status Date Vaccine Reaction Lot # 77306 Given 02/05/2019 Pneumonia Vaccine risk & benefits [id number] pneumovax discussed 23 16118 Given 02/05/2019 Tdap - risk & benefits Tdap/2E3EH/Private Tetanus/Diptheria/Ac discussed ellular Pertussis Vital Signs Date Vital Result Comment 04/16/2019 9:28am Height 63 inches 5'3" Weight 128.00 lb Heart Rate 62 /min BP Systolic Sitting 80 mmHg BP Diastolic Sitting 60 mmHg Respiratory Rate 16 /min Pain Level 4 O2 % BldC Oximetry 97 % BMI (Body Mass Index) 22.7 kg/m2 02/05/2019 9:09am Height 63 inches 5'3" Weight 121.31 lb Heart Rate 67 /min BP Systolic 94 mmHg BP Diastolic 62 mmHg Body Temperature 98.6 F O2 % BldC Oximetry 95 % BMI (Body Mass Index) 21.5 kg/m2 Results Test Acquired Date Facility Test Result H/L Range Note Cytology 02/05/2019 [facility] Cytology SEE RESULT BELOW 1 , [address] [place], [place] [address] [phone] PDFReport SEE IMAGE 1 [id number] SEE RESULT BELOW Name: MANDY ELIZALDE : [address]: Muriel FRANKLIN Acct: [id number] Unit: [id number] AGE: 63 Location: [facility] Re02/05/19 SEX: F Status: REG REF SPEC: [id number] PATRICK: 02/05/[address]: Muriel FRANKLIN REQ: [id number] RECD: 02/05/19 STATUS: SOUT _ ORDERED: TP IMAGE ANALYS, HPV/Thin Prep COMMENTS: [id number] FINAL DIAGNOSIS Negative for Intraepithelial lesion or [...] CONTINUED ON NEXT PAGE DEPARTMENT OF PATHOLOGY, [facility] [employer] [place] [address] Keenan Magana M.D. Director [facility] # [id number] CYTOLOGY PATIENT INFORMATION Patient Information: HPV: High risk HPV RNA testing regardless of pap results. Actual Specimen Date: 02/05/19 LMP If Unknown: 2003 ablation ?: N Post Menopausal?: Y Hysterectomy?: N Previous Abnormal Pap Smears?:N Signed by and Reported on: LYNN Garcia (ASCP) 1603 This Pap test was evaluated with the assistance of the [employer] Test Imaging System. Due to cytologic findings at the head bander and liner operator microscope, comprehensive manual rescreening by a Wax Room Supervisor may be required. The Pap Smear is [...] years. END OF REPORT DEPARTMENT OF PATHOLOGY, [facility] [employer] [facility] [place], [place] [address] Keenan Magana M.D. Director [facility] # [id number] Procedures Date Code Description Status 12/16/2018 [id number] Mammogram Completed 10/08/2017 [id number] Mammogram Completed 10/03/2016 [id number] Mammogram Completed 10/01/2015 [id number] Mammogram Completed 06/16/2009 [id number] Colonoscopy Completed Medical Devices Description No Information Available Encounters Type Date Location Provider Dx Diagnosis Office Visit 04/16/2019 [facility] Jason Hollingsworth, M17.12 Unilateral primary 9:30a at [place] osteoarthritis, left knee M06.862 Other specified rheumatoid arthritis, left knee Office Visit 02/05/2019 9:00a [facility] Primary Muriel Z00.00 Encntr for Care Ofe PA general adult medical exam w/o abnormal findings G24.3 Spasmodic torticollis E78.5 Hyperlipidemia, unspecified Z23 Encounter for immunization Z12.4 Encounter for screening for malignant neoplasm of cervix Assessments Date Code Description Provider 04/16/2019 M17.12 Unilateral primary osteoarthritis, left knee Jason Hollingsworth MD 04/16/2019 M06.862 Other specified rheumatoid arthritis, left Jason Hollingsworth MD knee 02/05/2019 Z00.00 Encounter for general adult medical Muriel Ofe, PA examination without abnormal findings 02/05/2019 G24.3 Spasmodic torticollis Muriel Bu[place], PA 02/05/2019 E78.5 Hyperlipidemia, unspecified Muriel [place], PA 02/05/2019 Z23 Encounter for immunization Muriel Buxton, PA 02/05/2019 Z12.4 Encounter for screening for malignant Muriel Buxton, PA neoplasm of cervix Plan of Treatment Future Appointment(s):05/12/2019 8:00 am - Jody Gomez M.D. at [facility] at [place]702/09/2020 9:00 am - Muriel Thakur PA at [facility]04/16/2019 - Jason Hollingsworth, MDM17.12 Unilateral primary osteoarthritis, left kneeFollow up:Follow up: Jason Grimaldo TKAM06.862 Other specified rheumatoid arthritis, left knee Functional Status Description No Information Available Mental Status Description No Information Available Referrals Description No Information Available
--- OUTSIDE RECORDS SUMMARY | 2019-06-06 11:04 | XMS REPORT | Summary of Care ---
:1955 Author Organization [facility] Address [address] [place] [address] Care Team Providers Name Role Phone Muriel Thakur Primary Care Provider Reason for Referral Surgical (Routine) Status Reason Specialty Diagnoses / Referred By Referred To Procedures Contact Contact Authorized Specialty Orthopedic Diagnoses Primary osteoarthritis of left knee Beny Chow, Services Surgery MD Required [address] [place] [address] Email: [email or web address] Reason for Visit Reason Comments Follow-up Encounter Details Date Type Department Care Team Description 04/11/2019 Office Visit Beny Martin MD Primary osteoarthritis Rheumatology [address] of left knee (Primary [address] [place] Dx) [place] [address] [place] [address] [phone] Allergies Active Allergy Reactions Severity Noted Date Comments Codeine Phosphate High 02/19/2014 Penicillins 02/19/2014 Topiramate 01/25/2018 dizziness documented as of this encounter (statuses as of 04/11/2019) Medications Medication Sig Dispensed Refills Start Date End Date Status clonidine (CATAPRES) Take 0.2 mg by 0 01/30/2014 Active 0.2 MG tablet mouth daily simvastatin (ZOCOR) 0 01/31/2014 Active 40 MG tablet tizanidine Take 4 mg by mouth 0 Active (ZANAFLEX) 4 MG every 6 (six) hours tablet as needed. Misc. Devices Use as directed. Lateral shoe wedge left foot 1 each 0 2015 Active (DURABLE MEDICAL EQUIPMENT SEE SIG) DX: L knee medial DJD MISC tramadol (ULTRAM) 50 Take 50 mg by mouth 0 07/07/2016 Active MG tablet every 6 (six) hours as needed clonazePAM 0 02/05/2017 Active (KLONOPIN) 1 MG tablet baclofen (LIORESAL) Take 10 mg by mouth 6 10/17/2017 Active 10 MG tablet Three times daily topiramate (TOPAMAX) Take 1 tablet by 180 tablet 0 10/29/2017 Active 25 MG tablet mouth Two Times Daily For 2 weeks, if no dizziness or excessive sleepiness can got to 2 tablets twice a day meloxicam (MOBIC) TAKE 1 TABLET BY 60 tablet 2 02/03/2019 Active 7.5 MG MOUTH TWICE DAILY tabletIndications: Connective tissue disease documented as of this encounter (statuses as of 04/11/2019) Active Problems Problem Noted Date Osteoarthritis of left knee 10/26/2017 Torticollis 02/16/2017 Knee pain, chronic 12/31/2015 Menopausal hot flushes Spasmodic torticollis DJD (degenerative joint disease) of cervical spine LUCILA positive DVT (deep venous thrombosis) documented as of this encounter (statuses as of 04/11/2019) Social History Tobacco Use Types Packs/Day Years Used Date Former Smoker Cigarettes 2 Quit: 03/17/2006 Smokeless Tobacco: Never Used Tobacco Cessation: Counseling Given: No Comments: smoked for about 20 years Alcohol Use Drinks/Week oz/Week Comments No Sex Assigned at Date Recorded Not on file Job Start Date Occupation Industry Not on file Not on file Not on file Travel History Travel Start Travel End No recent travel history available. documented as of this encounter Last Filed Vital Signs Vital Sign Reading Time Taken Comments Blood Pressure 109/68 04/11/2019 9:00 AM EST Pulse 53 04/11/2019 9:00 AM EST Temperature 36.9 04/11/2019 9:00 AM EST C (98.4 F) Respiratory Rate 16 04/11/2019 9:00 AM EST Oxygen Saturation 97% 04/11/2019 9:00 AM EST Inhaled Oxygen Concentration - - Weight 57.2 kg (126 lb) 04/11/2019 9:00 AM EST Height 158.8 cm (5' 2.5") 04/11/2019 9:00 AM EST Body Mass Index 22.68 04/11/2019 9:00 AM EST documented in this encounter Progress Notes Beny Chow MD - 04/11/2019 9:00 AM EST Subjective: Patient ID: Mandy Elizalde is a 63 y.o. female. HPI This is a 63-year-old white female with positive LUCILA, hyperlipidemia, spasmodic torticollis, degenerative joint disease of cervical spine and deep venous thrombosis, menopause symptoms came in for follow up. I first time saw her on 02/21/2014 at which time she was referred by primary care doctor for positive antinuclear antibody test, which was done in December 2013. The patient developed leg thrombosis in 2006. At that time, she was on estrogen. She never had a miscarriage. In December, she had right hand swollen. At that time, she was stung by a bee. During the workup, found to have positive antinuclear antibody test, but negative Lyme disease, ESR, rheumatoid factor, thyroid function.In June 2011, her antinuclear antibody was negative though. She is known to have muscle spasm of the neck and found to have degeneration of the cervical spine. She is on Flexeril 10 mg at bedtime, tramadol 50 mg, 1-2 tablets at bedtime and naproxen 500 mg twice a day. She also has generalized swelling, hot flashes from menopause symptoms. She is on clonidine 0.2 mg daily and Bristelle 5 mg daily, which did help. The patient denies photosensitivity, skin rash or ulcer, chest pain, alopecia, She has dry mouth with medications, but no dry eyes or Raynaud. No joint pain, swelling or stiffness. On 03/13/2014, she came in for follow up. She still have neck pain. Both knee pain which was not responsive to Naproxen. Left knee had surgery for torn meniscus. I reviewed labs with the patient. LUCILA speckle 1250, LUCILA specificity, C3, C4 were all normal. Suspected UCTD. Recommended hydroxychloroquine 200mg bid. Need yearly foreign collection clerk exam to monitor retinal toxicity. Side effect explained. E-prescribed 60+11. On 10/09/2014, she came in for follow up. She continued to have left knee pain. Discussed about steroid injection but she deferred. She tried Plaquenil 200mg bid for 6 months but she did not notice any benefit. Will hold off hydroxychloroquine 200mg for 3-4 weeks. If symptoms worsening, she could go back on Plaquenil. If not, discontinue it. She continued Tramadol which was prescribed by her PCP. On 12/31/2015, she came in for follow up. She continued to have both knees and ankles joints pain. Difficulty with walking. did ankles and knees x-ray. She did not feel Plaquenil help. try Celebrex 200mg bid. On 01/28/2016, she came in for follow up. The patient continued to have bilateral knee pain and ankle pain. Left knee is worse. She developed a left knee effusion and went to [facility] 2 days ago. She had x-ray, which showed effusion. She was given prednisone 40 mg daily for 5 days. That did help with the swelling, but the left knee is still painful and swollen and had difficulty walking. I did review the ankle and knee x-rays with her. Both ankles have mild osteoarthritis. Left knee has moderate osteoarthritis with knee effusion, nearly [id number] onthe medial side. Right knee has mild osteoarthritis. She did not get Celebrex because her insurance rejected it. She is on Mobic 15 mg daily, which did not help significantly. Other joints have been doing okay. I did a referral to Orthopedics for possible knee replacement. Also, did left knee arthrocentesis and Depo-Medrol 80 mg injection today. On 04/21/2016, she came in for follow up. The left knee arthrocentesis and steroid injection did helpsignificantly. The patient was evaluated by Orthopedics, Dr. Hebert, on March 17, 2016. Had a discussion about knee replacement. Although the patient is a candidate for knee replacement, she saidfinancially she could not afford it out of work. Currently, she just wants to go with intermittent steroid injections, conservative management. Did the left knee 80 mg Depo-Medrol injection again. This morning she had an accident, an injury to the right hand index fingertip. Otherwise, she is doing fine. On 07/25/2016, she saw Dr. Mcleod and had knee steroid injection again. On 10/27/2016, the patient came in for follow up. The patient continued to have left knee pain and difficulty with walking and stairs. She was evaluated by orthopedic Dr. Hebert, who recommended knee replacement. However, she could not afford to do that because she needed to work. She requests a left knee injection again. Gave 80 mg Depo-Medrol to the left knee. She continued taking meloxicam 7.5mg twice a day. She did notice, in the middle of the day, the Meloxicam seemed to be wearing off. I suggested to add Tylenol Arthritis strength in the middle of the day. She also has tramadol as needed for pain. On 02/23/2017, the patient came in for follow up. The patient continued to have left knee pain and difficulty with walking and stairs. She was evaluated by orthopedic Dr. Hebert, who recommended kneereplacement. However, she could not afford to do that because she needed to work. She requests a left knee injection again. Did 80 mg Depo-Medrol to the left knee. She continued taking meloxicam 7.5mg twice a day. On 06/22/2017, the patient came in for follow up. Last time steroid injection only lasted about one day. She requested left knee steroid injection again. 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 Did 80 mg Depo-Medrol to the left knee. She continued taking meloxicam 7.5 mg twice a day. On 10/26/2017, the patient came in for follow up. Left knee injection lasted about 2-3 month. Now left knee pain and swelling again. Continue Meloxicam 7.5mg bid. She saw Dr. Hebert but she could not take days off for knee replacement. She requested steroid injection. Did 80 mg Depo-Medrol to the leftknee. Short term and long-term side effects of steroid use including but limited to AVN was discussed with the patient in detail. On 01/25/2018, the patient came in for follow up. Left knee pain recurred again. She requested another steroid injection. Did 80 mg Depo-Medrol to the left knee. 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 On 04/19/2018, the patient came in for follow up. Left knee started to painful recently. She requested another steroid injection. Did 80 mg Depo-Medrol to the left knee. 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 On 07/19/2018, the patient came in for follow up. Left knee hurts again a couple of weeks ago. Right knee was fine. Still on Meloxicam 7.5mg daily. No side effects. She requested another steroid injection. Did 80 mg Depo-Medrol to the left knee. 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 On 10/18/2018, the patient came in for follow up. Left knee pain recurred. Last injection from medical side did not worked well. She requested another steroid injection. Did 80 mg Depo-Medrol to the left knee from lateral side. Short term and long-term side effects of steroid use including but limited to AVN was discussed with the patient in detail. On 01/10/2019, the patient came in for follow up. Left knee pain recurred and she requested injectionagain. Did 80 mg Depo-Medrol to the left knee from lateral side. 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 On 04/11/2019, the patient came in for follow up. For the past one week, left knee pain recurred. She requested left knee steroid injection. Did 80 mg Depo- Medrol to the left knee from lateral side. 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 She is agreeable to see orthopedics. Made referral. Review of Systems Per HPI. Review of complete ROS is negative. Past Medical History: Diagnosis Date LUCILA positive DJD (degenerative joint disease) of cervical spine DVT (deep venous thrombosis) Hyperlipidemia Menopausal hot flushes Spasmodic torticollis Torticollis Past Surgical History: Procedure Laterality Date left knee surgery 02/14/2010 Family History Problem Relation Age of Onset Restless leg syndrome Mother Diabetes Mother COPD Mother Social History Tobacco Use Smoking status: Former Smoker Packs/day: 2.00 Types: Cigarettes Last attempt to quit: 03/17/2006 Years since quittin.0 Smokeless tobacco: Never Used Tobacco comment: smoked for about 20 years Substance Use Topics Alcohol use: No Drug use: No Allergies Allergen Reactions Codeine Phosphate Penicillins Topiramate dizziness Current Outpatient Medications Medication Sig Dispense Refill baclofen (LIORESAL) 10 MG tablet Take 10 mg by mouth Three times daily 6 clonazePAM (KLONOPIN) 1 MG tablet clonidine (CATAPRES) 0.2 MG tablet Take 0.2 mg by mouth daily meloxicam (MOBIC) 7.5 MG tablet TAKE 1 TABLET BY MOUTH TWICE DAILY 60 tablet 2 Misc. Devices (DURABLE MEDICAL EQUIPMENT SEE SIG) MISC Use as directed. Lateral shoe wedge left foot DX: L knee medial DJD 1 each 0 simvastatin (ZOCOR) 40 MG tablet tizanidine (ZANAFLEX) 4 MG tablet Take 4 mg by mouth every 6 (six) hours as needed. topiramate (TOPAMAX) 25 MG tablet Take 1 tablet by mouth Two Times Daily For 2 weeks, if no dizziness or excessive sleepiness can got to 2 tablets twice a day 180 tablet 0 tramadol (ULTRAM) 50 MG tablet Take 50 mg by mouth every 6 (six) hours as needed 0 No current facility-administered medications for this visit. Objective: Visit Vitals BP 109/68 Pulse (!) 53 Temp 36.9 C (98.4 F) (Tympanic) Resp 16 Ht 1.588 m (5' 2.5") Wt 57.2 kg (126 lb) SpO2 97% BMI 22.68 kg/m HEENT: diffused facial erythema, hearing grossly intact. Extremities no cyanosis , clubbing or edema.Neuro exam: AAO*3, no focal deficits except head, neck tremor. Skin exam: No psoriasis or vasculitisskin rash. Joint exam: No active synovitis in both upper and lower extremity joints except left kneevery small effusion, tenderness, limited ROM. Both ankles tenderness. No fibromyalgia tender points.Normal gait and stance. Data reviewed: Labs done 12/13/2013 LUCILA speckle 1:640, Lyme, ESR, CRP, TSH, RF, CBC, CMP were all normal. Lab done 06/27/2011 LUCILA negative. Office Visit on 01/28/2016 Component Date Value Ref Range Status Crystals, Fluid 01/28/2016 Not Detected Not Detected Final LEFT KNEE EFFUSION Special Request 01/28/2016 None Final Gram Stain 01/28/2016 No WBC's or organisms seen. Final Culture/Results 01/28/2016 No growth 5 days Final Knee x-ray: mild to moderate osteoarthritis of both knees. Left knee nearly bone on bone on medial side, moderate effusion present. Ankles x-ray: mild osteoarthritis of both ankles. Assessment: 1. Positive LUCILA, neck pain, knees pain. 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 2. Hyperlipidemia. On simvastatin 40mg 3. DJD of cervical spine. On Naproxen, flexeril, tramadol. 4. Menopause symptoms, hyperhidrosis. On Clonidine and Brisdelle. 5. Spasmodic torticollis. On Flexeril. 6. Moderate knee osteoarthritis, left knee effusion. Plan: - Mandy was seen today for follow-up. Diagnoses and all orders for this visit: Primary osteoarthritis of left knee - Continue Mobic 7.5mg bid. - Left knee steroid injection today. - Activities as tolerated. - RV in 3 months; above findings, analysis and plan were all discussed with the patient and her questions were answered as much as possible. Procedure note After explaining the procedure and obtaining written consent, I cleaned left knee lateral side with chloraprep. Attempted lateral approach to advance needle but failed. Then I cleaned the anterior sideof knee. I injected 80 mg depomedrol with lidocaine 2ml to left knee. The patient tolerated the procedure well. There was no immediate complications. Vital signs recorded. The patient was discharged on stable condition. documented in this encounter Plan of Treatment Date Type Specialty Care Team Description 07/11/2019 Office Visit Rheumatology Beny Chow MD [address] [place] [address] [address] [place] [address] [phone] Name Type Priority Associated Diagnoses Order Schedule Referral to Outpatient Referral Routine Primary osteoarthritis Ordered: Orthopedic Surgery of left knee 04/11/2019 Health Maintenance Due Date Last Done Comments Hepatitis C Screening (B. 1955 [id number]) MMR Vaccines (1 of 1 - Standard 1957 series) Varicella Vaccines (1 of 2 - 1956 2-dose childhood series) DTaP,Tdap,and Td Vaccines (1 - 07/28/1963 Tdap) HIV Screening 1969 Cervical Cancer Screening 5 years 1977 Breast Cancer Screening 2 years 2006 Colon Cancer Screening 10 yrs 2006 Zoster Vaccines (1 of 2) 2006 Influenza Vaccine 01/07/2019 Pneumococcal Vaccine: 65+ Years (1 2021 of 2 - PCV13) HIB Vaccines Aged Out No longer eligible based on patient's age to complete this topic Hepatitis A Vaccines Aged Out No longer eligible based on patient's age to complete this topic Hepatitis B Vaccines Aged Out No longer eligible based on patient's age to complete this topic IPV Vaccines Aged Out No longer eligible based on patient's age to complete this topic Pneumococcal Vaccine: Pediatrics Aged Out No longer eligible based on (0 to 5 Years) and At-Risk patient's age to complete this Patients (6 to 64 Years) topic documented as of this encounter Results Not on filedocumented in this encounter Visit Diagnoses Diagnosis Primary osteoarthritis of left knee - Primary Primary localized osteoarthrosis, lower leg documented in this encounter Administered Medications Medication Order MAR Action Action Date Dose Rate Site lidocaine (XYLOCAINE) 1 % 2 mL Given by Other 04/11/2019 9:25 AM Other with methylPREDNISolone acetate EST (DEPO-MEDROL) 80 mg Intra-articular, Once, Sun04/11/19 at 0915, For 1 dose documented in this encounter
[2019-06-06] MEDS ORDERED: Dexamethasone TAB* 4 MG ONE (11:24)
[2019-06-06] MEDS ORDERED: Clindamycin 900 MG/D5W BAG(*) 900 MG/50 ML BAG IVPB ONE (11:24)
[2019-06-06] MEDS ORDERED: Ondansetron ODT TAB* 4 MG ONE (11:24)
[2019-06-06] MEDS ORDERED: Famotidine IV* 10 MG/ML 2 ML (20 mg) ONE (11:25)
[2019-06-06] MEDS ORDERED: fentaNYL* 50 MCG/ML 2 ML VIAL (100 MCG VIAL) ONE (12:21)
[2019-06-06] MEDS ORDERED: KETAMINE HCL* 50 MG/ML 10 ML VIAL ONE (12:21)
[2019-06-06] MEDS ORDERED: Midazolam* 1 MG/ML 5 ML VIAL (5 MG) ONE (12:21)
[2019-06-06] MEDS ORDERED: ROPIVACAINE 5 MG/ML 30 ML BTL (0.5%) ONE ×2 (13:29→16:12)
[2019-06-06] MEDS ORDERED: Midazolam* 1 MG/ML 2 ML VIAL (2 MG) ONE (13:52)
[2019-06-06] MEDS ORDERED: Bupivacaine 0.5% SDV PF* 30ML VIAL ONE ×2 (14:20→16:12)
[2019-06-06] MEDS ORDERED: Propofol* 500 MG/50 ML BTL ONE (14:34)
[2019-06-06] MEDS ORDERED: Acetaminophen IV 1GM/100ML * 100 ML ONE (15:52)
[2019-06-06] MEDS ORDERED: Glycopyrrolate IV* 0.2 MG/ML 1 ML VIAL ONE (16:12)
[2019-06-06] MEDS ORDERED: EPHEDrine (Pressors)* 50 MG/ML VIAL ONE (16:12)
[2019-06-06] MEDS ORDERED: Ketorolac INJ* 30 MG/ML 1 ML VIAL ONE (16:12)
--- NOTE | 2019-06-06 16:18 | OP ---
Operative Report - Blank - Operative Report Date of Operation: 06/06/19 Note: GEETHA PHILLIPS 1955 Date of Surgery: 06/06/19 Jody Gomez MD Family Practice Nurse Practitioner: Sam FRANKLIN did help throughout the procedure with preparation of the knee, wound retraction, manipulation of the knee, and wound closure. Anesthesiologist: Dr. Bolden Anesthesia Type: Spinal Preoperative Diagnosis: Left severe degenerative osteoarthritis of the knee Postoperative Diagnosis: As above Procedure Performed: Left Total Knee Arthroplasty Tourniquet time: 42 minutes Complications: None Specimen: Bone and cartilage from the left knee joint sent to pathology. Hardware Used: Cemented Shi and Nephew total knee hardware was used - For the femur a size 4 narrow oxinium left legion posterior stabilized femoral component , for the tibia a size 3 left eleanor II tibial baseplate, for the insert a size 11mm 3-4 posterior stabilized articular polyethylene insert, and for the patella a size 32 3-peg all poly patella. Brief History/Indication: GEETHA PHILLIPS was known in clinic and had a history of severe left knee pain and swelling. She failed conservative treatment with anti- inflammatories, pain pills, intra-articular injections and physical therapy. She elected to undergo left total knee arthroplasty due to continued pain and decreased quality of life. Radiographs showed severe end stage osteoarthritis of the knee with bone on bone contact. Informed consent was obtained from the patient. She understood the risks of surgery included but were not limited to: bleeding, infection, damage to nearby structures, intraoperative fracture, nerve palsy, failure of the hardware, early loosening, knee stiffness or loss of motion, anesthesia complications, stroke, heart attack, blood clot and . She wished to proceed. Intra-Operative Findings: Intraoperatively the patient was noted to have severe loss of cartilage in all 3 compartments of the knee. Description of the Procedure: GEETHA PHILLIPS was identified in the preanesthesia unit. Her left knee was marked as the correct operative side. Informed consent was signed and placed in the chart. The patient was taken to the operating room and placed under anesthesia without complication. A carcamo catheter was placed. A tourniquet was placed on the left thigh. The left lower extremity was prepped and draped in the usual sterile fashion. Preoperative time-out was made to correctly identify the patient, side and site. Appropriate intraoperative antibiotics were given within one hour of incision. Tourniquet was inflated. A midline incision was made and carried sharply down to the extensor mechanism. A new 10 blade was used to make a standard medial parapatellar arthrotomy. The patella was subluxed laterally. Electrocautery was used to dissect soft tissue off the superomedial tibia to the midsagittal plane. The knee was flexed up. The anterior horn of the lateral meniscus and the ACL were sharply incised. A drill was used to enter the distal femur. The intramedullary distal femoral cutting guide was pinned on the distal femur. The oscillating saw was used to make the distal femoral cut. The external rotation guide was pinned on the distal femur and the distal femur was sized to a size 4. The size 4 multi-cutting jig was pinned on the distal femur. The oscillating saw was used to make the appropriate 4 chamfer cuts. Next the PCL was completely released. The extramedullary tibial cutting guide was pinned on the proximal tibia and the oscillating saw was used to make the proximal tibial cut perpendicular to the mechanical axis of the tibia. The bone was carefully removed. The knee was brought out into full extension. The spacer block was placed and had excellent fit with the knee in full extension. The medial and lateral ligaments were well balanced. The flexion and extension gaps were well balanced. The knee was flexed up. Lamina supervisor cooler service was placed both medially and laterally. Any remaining meniscus was removed with electrocautery. Curved osteotome was used to remove any posterior osteophytes. The tibial tray and drop perlita were placed and confirmed a satisfactory tibial cut. The size 4 left narrow femoral trial was impacted onto the distal femur. This trial had excellent fit and stability. The box for the posterior stabilized implant was prepared using a box cut osteotome and a reamer. Next a tibial tray trial and 9 mm insert trial was placed. The knee was taken through a range of motion and had full extension to 130 degrees of flexion. Patellofemoral tracking was satisfactory. The patella was inverted and sized to a size 32. Three peg holes were drilled through the size 32 drill guide. The trial patella was placed and the knee was taken through a range of motion. There was satisfactory patellofemoral tracking. All trials were removed. The tibia was subluxed anteriorly and sized to a size 3. The proximal tibial was prepared with a size 3 keel punch. All bony cut surfaces were irrigated with sterile saline and dried. Final implants were cemented into place starting with the tibia, followed by the femur, and last the patella. A 9 mm insert trial was placed and the knee was brought into full extension. Tourniquet was turned down and the knee was copiously irrigated with sterile saline. Electrocautery was used to obtain meticulous hemostasis. Once the cement had fully cured, the insert trial was removed. Any excess cement was removed from around the hardware and capsule. Final insert chosen was a 11 mm posterior stabilized Eleanor II articular insert size 3-4. Stability of the insert was checked and noted to be stable. The extensor mechanism was closed using number 1 vicryls. The rest of the incision was closed in a layered fashion using 0 and 2-0 vicryls. The skin was closed using 3-0 nylon suture. Sterile xeroform, 4x4s and webril were used to cover the incision. Naveen wrap and cold pack were used to cover the dressings. The patients anesthesia was reversed without difficulty. She was taken to the PACU in stable condition. Intended weight-bearing will be as tolerated.
[2019-06-06] MEDS ORDERED: Atropine 1MG/ML INJ* 1 ML VIAL ONE (16:42)
[2019-06-06] MEDS ORDERED: diPHENhydraMINE IV* 50 MG/ML 1 ml VIAL (BENADRYL) IV PRN (16:50)
[2019-06-06] MEDS ORDERED: Morphine INJ* 2 MG/ML 1 ML SYRINGE (TWO MG - NEW SYRINGE VERSION) IV PRN (16:50)
[2019-06-06] MEDS ORDERED: oxyCODONE/Acetamin 5/325 MG* TAB PO PRN ×2 (16:50)
[2019-06-06] MEDS ORDERED: Ondansetron ODT TAB* 4 MG PO PRN (16:50)
[2019-06-06] MEDS ORDERED: oxyCODONE TAB* 5 MG TAB PO PRN (16:50)
[2019-06-06] MEDS ORDERED: Magnesium Hydroxide LIQ* 30 ML UDC PO PRN (16:50)
[2019-06-06] MEDS ORDERED: traZODone TAB* 50 MG TAB PO PRN (16:50)
[2019-06-06] MEDS ORDERED: Ondansetron INJ* 2 MG/ML VIAL IV PRN (16:50)
[2019-06-06] MEDS ORDERED: diPHENhydraMINE PO* 25 MG PO PRN (16:50)
[2019-06-06] MEDS ORDERED: traMADol TAB* 50 MG PO PRN ×2 (16:50→22:12)
[2019-06-06] MEDS ORDERED: Polyethylene Glycol 3350* 17 GM PACKET PO PRN (16:50)
[2019-06-06] MEDS: Lactated Ringers 1000 ML Bag* 1,000 ML IV SCH (18:37)
[2019-06-06] MEDS: Cyclobenzaprine TAB* 10 MG PO PRN (21:22)
[2019-06-06] MEDS: clonazePAM TAB(*) 1 MG PO SCH (21:23)
[2019-06-06] MEDS: Docusate CAP* 100 MG PO SCH (21:24)
[2019-06-06] MEDS: cloNIDine TAB* 0.1 MG PO SCH (21:24)
[2019-06-06] MEDS: Magnesium Hydroxide LIQ* 30 ML UDC PO SCH (21:25)
--- NOTE | 2019-06-06 21:40 | CONS ---
HOSPITAL MEDICINE CONSULTATION REPORT: DATE OF CONSULT: 06/06/19 PROVIDER: Yasmine Avendano NP. ATTENDING PHYSICIAN: Dr. Jody Gomez. CONSULTING PHYSICIAN: Dr. Rome Hernandez (dictated by Yasmine Avendano NP) . REASON FOR CONSULT: Co-management of chronic medical conditions. HISTORY OF PRESENT ILLNESS: Ms. Elizalde is a 63-year-old female with past medical history significant for hyperlipidemia, spastic torticollis and history of a DVT 20 years ago from control pills, who [place] [facility] total knee arthroplasty with Dr. Gomez. Please see dictated H and P from Barbara Bender for complete details. In brief, the patient had ongoing pain, failed conservative treatment, opted to proceed with left total knee arthroplasty with Dr. Gomez. Due to the patient's history of DVT, hyperlipidemia, spastic torticollis, [facility] was asked to help co- manage her care during this hospitalization. PAST MEDICAL HISTORY: 1. Hyperlipidemia. 2. Spastic torticollis. 3. History of DVT 20 years ago due to control pills. PAST SURGICAL HISTORY: 1. Left knee arthroscopy. 2. Tubal ligation. HOME MEDICATIONS: Include: 1. Tramadol 50 mg every 4 hours as needed. 2. Stool softener as needed. 3. Clonidine 0.2 mg p.o. b.i.d. 4. Simvastatin 40 mg p.o. daily. 5. Clonazepam 1 mg p.o. b.i.d. 6. Baclofen 10 mg every 8 hours. 7. Sumatriptan 50 mg p.r.n. migraine. 8. Vitamin D 1000 units p.o. daily. 9. Calcium 500 mg p.o. daily. 10. Botox every 3 months. ALLERGIES: To PENICILLIN, CODEINE, HYDROCODONE, TOPIRAMATE, and PREDNISONE. FAMILY HISTORY: Grandfather with a history of coronary artery disease, no reported history of diabetes, maternal grandmother with lung cancer. SOCIAL HISTORY: The patient denies any smoking or illicit drug use. She does report occasional alcohol use. Surrogate decision maker in the event she is unable to make her own decisions is her significant other, Regan Gaxiola. His phone number is [phone]. She is a full code. REVIEW OF SYSTEMS: The patient denies any fever, chills. Denies any chest pain , shortness of breath. She denies any cough or hemoptysis. She denies any gross hematuria, dysuria, focal weakness, sensory loss, visual complaints, dysphagia, arthralgias, myalgias, rashes, lesions, open sores, psychosis, or anxiety. PHYSICAL EXAMINATION: General: At this time, Ms. Elizalde is a 63-year-old female. She is in no acute distress, resting in her hospital bed. Vital Signs : Blood pressure 118/59, heart rate 60, respirations 16, O2 saturation 98%, temperature is 97.0. HEENT: Head is atraumatic and normocephalic. Eyes: EOMs are intact. Sclerae anicteric and not pale. Oral mucosa is moist. Neck is supple. Lungs are clear to auscultation bilaterally. No wheezes, rales, or rhonchi. Cardiac: S1, S2. Regular rate and rhythm. No murmurs, rubs, or gallops. The abdomen is soft and nontender. Bowel sounds are present x4. Extremities: She is able to move all 4 extremities. There is no clubbing or cyanosis. She does have a dressing that is dry and intact to her left knee. Pedal pulses are +2 bilaterally. Neurologic: She is awake, alert, oriented x3. Speech is clear. Thought process is intact. Skin: She does have a dressing that is dry and intact to the left knee. DIAGNOSTIC STUDIES/LAB DATA: CBC from 05/20/19: WBCs were 3.2, RBCs 4.36, hemoglobin 13.5, hematocrit was 39, platelet count was 206. INR was 1.00. Sodium 142, potassium 4.0, chloride 106, carbon dioxide is 31, anion gap is 5, BUN was 20, creatinine 0.85. Calcium was 10. Glucose was 93. Total bilirubin 0.40. ASTs were 14, ALTs were 14, alkaline phosphatase were 62. Urine was within normal limits with the exception of squamous epithelial cells were present, calcium oxalate crystals were present, 2+ bacteria and hyaline casts. Urine culture from 05/29/19 showed no growth. IMPRESSION AND PLAN: Ms. Elizalde is a 63-year-old female with past medical history significant for hyperlipidemia, spastic torticollis and history of deep venous thrombosis, who [place] [facility] [place] elective left total knee arthroplasty with Dr. Gomez. Our recommendations are as follows: 1. Status post left total knee arthroplasty. Management per Orthopedics. PT/ OT per Orthopedics. Bowel regimen per Orthopedics. Pain management per Orthopedics. DVT prophylaxis per Orthopedics. 2. Spastic torticollis. The patient should continue on Baclofen 10 mg every 8 hours as needed. 3. Anxiety. She should continue on clonidine and clonazepam as previously prescribed. 4. History of migraines. The patient can take sumatriptan 50 mg as needed for migraines. 5. Hyperlipidemia. She should continue on simvastatin 40 mg p.o. daily. 6. FEN: She can have a regular diet 7. Code status: She is a full code. 8. DVT prophylaxis: As per Orthopedics. TIME SPENT: Time spent on this consultation was 45 minutes, greater than half that time was spent at the bedside reviewing events leading thus far to her hospitalization, performing physical exam, and reviewing my plan of care. I have discussed this with my attending, Dr. Rome Hernandez; he is in agreement with my plan. YASMINE AVENDANO, CLARISA [id number]/CPS #: [id number] BALWINDER
[2019-06-06] MEDS: Clindamycin 600 MG/D5W BAG(*) 600 MG/50 ML BAG IV SCH (23:04)
[2019-06-07] MEDS: Acetaminophen TAB* 325 MG PO SCH ×2 (00:34→07:24)
[2019-06-07] MEDS: traMADol TAB* 50 MG PO PRN ×2 (04:54→11:04)
[2019-06-07] MEDS: Lactated Ringers 1000 ML Bag* 1,000 ML IV SCH (04:55)
[2019-06-07 05:04] LABS: Hematocrit 33 % (35-47); Hemoglobin 11.5 g/dL (12.0-16.0); Mean Platelet Volume 8.2 fL (7.4-10.4); Platelet Count 178 10^3/uL (150-450)
[2019-06-07 05:20] LABS: BUN/Creatinine Ratio 22.7 (8-20); Calcium 9.4 mg/dL (8.6-10.3); EGFR African American 94.7 (>60); EGFR Non-African American 78.3 (>60); Potassium 4.5 mmol/L (3.5-5.0)
[2019-06-07] MEDS: Clindamycin 600 MG/D5W BAG(*) 600 MG/50 ML BAG IV SCH ×2 (05:56→14:05)
[2019-06-07] MEDS: Cyclobenzaprine TAB* 10 MG PO PRN ×2 (07:24→14:08)
[2019-06-07] MEDS: Magnesium Hydroxide LIQ* 30 ML UDC PO SCH (08:47)
[2019-06-07] MEDS: Docusate CAP* 100 MG PO SCH (08:48)
[2019-06-07] MEDS: cloNIDine TAB* 0.1 MG PO SCH (08:48)
[2019-06-07] MEDS: clonazePAM TAB(*) 1 MG PO SCH (08:48)
[2019-06-07] MEDS ORDERED: Atorvastatin* 20 MG TAB PO SCH (09:00)
[2019-06-07] MEDS ORDERED: Apixaban* 2.5 MG TAB PO SCH (09:00)
[2019-06-07] MEDS ORDERED: Vitamin THERAPEUTIC TAB PO SCH (09:00)
--- NOTE | 2019-06-07 10:04 | PN ---
Progress Note - Progress Note Date of Service: 06/07/19 SOAP: Subjective: Pt. is alert, nad, minimal pain left knee. Objective: Vital Signs: Temp Pulse Resp BP Pulse Ox 97.9 F 51 18 101/60 98 06/07/19 07:51 06/07/19 07:51 06/07/19 09:21 06/07/19 07:51 06/07/19 07:51 Laboratory Results - last 24 hr 06/07/19 06/07/19 04:51 04:51 Hgb 11.5 L Hct 33 L Plt Count 178 MPV 8.2 Sodium 137 Potassium 4.5 Chloride 105 Carbon Dioxide 26 Anion Gap 6 BUN 17 Creatinine 0.75 Est GFR ( Amer) 94.7 Est GFR (Non-Af Amer) 78.3 BUN/Creatinine Ratio 22.7 H Glucose 134 H Calcium 9.4 LLE - dressing changed, inc c/i, with mild ss drainage from inferior wound. distally nvi. +df/pf, full sens lt, 2+ dp pulse. Assessment: 63 yo F pod 1 s/p LTKA Plan: wbat pt/ot plan to d/c to home today with vns eliquis bid
--- NOTE | 2019-06-07 10:27 | DS ---
Orthopedic Discharge Summary - Discharge Summary Date of Admission:06/06/19 Date of Discharge: 06/07/19 Date of Surgery: 06/06/19 Attending Orthopedic Provider: Jody Gomez MD Pre-operative Diagnosis: Severe left knee osteoarthritis Operative Procedure: Left total knee replacement Disposition of Patient:Home Home care vs Outpatient services: Home care Condition of Patient: Stable Pain medication RX at discharge: Tramadol DVT prophylaxis RX at discharge: Eliquis 2.5mg BID History: GEETHA PHILLIPS is a 63 year old F with years of increasingly severe Left pain. Patient has failed conservative management and has elected to undergo a Left total knee replacement Hospital Course: GEETHA was admitted to [facility] on 06/06/19. Patient underwent a Left total knee replacement without complication followed by a brief recovery in PACU and transfer to the Short Stay Surgical Unit in stable condition. Our hospitalist service, physical therapy and occupational therapy also participated in this patients care. Post-op day 1: patient was alert and in no acute distress. Dressing was clean, dry and intact. Operative extremity dorsiflexion and plantarflexion intact, sensation intact to light touch distally, DP2+. Dressing was changed, incision was clean, dry and intact. Patient was deemed to be medically and orthopedically stable for discharge. Physical therapy goals were met. The patient was discharged to home in a stable condition. Home Medications Medication Instructions Recorded Confirmed Type Meloxicam 7.5 mg PO BID 11/25/16 06/06/19 History Simvastatin [Zocor 40 MG (NF)] 40 mg PO QAM 11/25/16 06/06/19 History cloNIDine TAB* [Catapres 0.1 MG 0.2 mg PO BID 11/25/16 06/06/19 History TAB*] traMADol TAB* [Ultram*] 50 mg PO Q6HR PRN 11/25/16 06/06/19 History Botox 1 dose IM .EVERY 3 MONS 05/30/19 06/06/19 History Calcium Carbonate [Calcium] 500 mg PO QAM 05/30/19 06/06/19 History Cholecalciferol TAB* [Vitamin D 1,000 units PO QAM 05/30/19 06/06/19 History TAB*] SUMAtriptan TAB* [Imitrex TAB*] 50 mg PO ONCE PRN 02/21/20 02/28/20 History clonazePAM TAB(*) [Klonopin TAB(*)] 1 mg PO BID 05/30/19 06/06/19 History Apixaban* [Eliquis*] 2.5 mg PO BID tab 06/07/19 Rx Discharge Instructions following Orthopedic Surgery: Activity: * Weight Bearing as tolerated * Continue physical therapy and occupational therapy exercises as shown * If you have elected to have home physical therapy, continue therapy exercises at home. If you have elected outpatient physical therapy, please start therapy as an outpatient right away. Wound care: * OK to shower on post-op day 3, no bathing, swimming, or submerging wound. * Use gentle soap, pat dry. Cover with gauze, VIRI wrap or tape. * If you elected to have a visiting home nurse, they will perform wound checks. Call Orthopedic office for: * Increased drainage * Redness * Increased pain * Fever Go to ER with shortness of breath or chest pain. Diet: * Regular diet * Increase fluids and fiber to prevent constipation. * Continue to use stool softeners, call office if no bowel motion within 48 hours. Medications See Home Medication List in your packet for medications that you should take after discharge. DVT Prophylaxis: Eliquis Dosin.5 mg, 1 tab every 12 hours x 30 days Pain Control: Tramadol 50 mg tabs: take 1 tab for moderate pain and 2 tabs for every pain every 6 hours as needed. Max 8 per day. Hold for sedation, wean off as soon as pain allows. Antibiotics are required prior to any dental work. FOLLOW UP: Follow up with Dr. Gomez Within 10-14 days, call for appointment Please call our office with any questions or concerns ([phone])
[2019-06-07 11:13] VITALS: BP 94/52
== END 2019-06-07 15:00 | disposition home or self-care (01) | DRG 302 ==
LOC: AA 10:59 → SSU 16:50
PROVIDERS: ADMIT Orthopaedic Surgery Adult Reconstructive Orthopaedic Surgery; ATTEND Orthopaedic Surgery Adult Reconstructive Orthopaedic Surgery
PROC: 0SRD069 Replacement of Left Knee Joint with Oxidized Zirconium on Polyethylene Synthetic Substitute, Cemented, Open Approach (ICD-10-PCS; principal; 2019-06-06 13:00)
DX: M17.12 Unilateral primary osteoarthritis, left knee (principal); E78.00 Pure hypercholesterolemia, unspecified; G24.3 Spasmodic torticollis; E78.5 Hyperlipidemia, unspecified; F41.9 Anxiety disorder, unspecified; M25.762 Osteophyte, left knee; Z86.718 Personal history of other venous thrombosis and embolism; Z79.899 Other long term (current) drug therapy; Z88.5 Allergy status to narcotic agent; Z88.0 Allergy status to penicillin; Z88.8 Allergy status to other drugs, medicaments and biological substances; Z83.3 Family history of diabetes mellitus; Z82.49 Family history of ischemic heart disease and other diseases of the circulatory system; Z82.61 Family history of arthritis; Z80.1 Family history of malignant neoplasm of trachea, bronchus and lung
CPT/HCPCS: 36415; 80048; 85014; 85018; 85049; 88305; 88311; A9270-GY; C1776; J0461; J1885; J2250; J2270; J2704; J2795; J3010; J3490; J8540

== ENCOUNTER 2021-08-22 08:56 | Observation (INO) ==
[2021-08-22 11:42] LABS: ABS Eosinophils 0.1 10^3/ul (0-0.6); ABS Lymphocytes 1.2 10^3/ul (1.0-4.8); ABS Monocytes 0.3 10^3/ul (0-0.8); ABS Neutrophils 3.8 10^3/ul (1.5-7.7); Eosinophil % 1.3 %; Hematocrit 41 % (35-47); Hemoglobin 13.4 g/dL (12.0-16.0); Lymphocyte % 22.5 %; Mean Corpuscular HGB Conc 33 g/dL (31-36); Mean Corpuscular Hemoglobin 31 pg (27-31); Mean Corpuscular Volume 92 fL (80-97); Mean Platelet Volume 7.6 fL (7.4-10.4); Platelet Count 294 10^3/uL (150-450); Red Blood Count 4.41 10^6 /uL (3.70-4.87); Red Cell Distribution Width 13 % (10-15); White Blood Count 5.4 10^3/uL (3.5-10.8)
[2021-08-22 12:47] LABS: ALT 13 U/L (7-52); AST 16 U/L (13-39); Albumin 4.4 g/dL (3.2-5.2); Albumin/Globulin Ratio 1.6 (1-3); Alkaline Phosphatase 75 U/L (35-149); Anion Gap 6 mmol/L (2-11); Blood Urea Nitrogen 14 mg/dL (6-24); CO2 Carbon Dioxide 28 mmol/L (22-32); Calcium 10.2 mg/dL (8.6-10.3); Chloride 111 mmol/L (101-111); Cholesterol 173 mg/dL; Globulin 2.7 g/dL (2-4); Glucose 96 mg/dL (70-100); Potassium 4.2 mmol/L (3.5-5.0); Sodium 145 mmol/L (135-145); Total Protein 7.1 g/dL (6.4-8.9); eGFR CKD-EPI 84.2 (>60)
[2021-08-22] MEDS ORDERED: Gadoteridol (CONTRAST) 279.3 MG/ML 10 ML IV ONE (14:18)
[2021-08-22] MEDS ORDERED: Gadobenate (CONTRAST) 529 MG/ML 10 ML SDV IV ONE (14:21)
[2021-08-22 15:48] LABS: Urine Appearance Turbid; Urine Bilirubin Negative (Negative); Urine Blood Negative (Negative); Urine Color Amber; Urine Glucose Negative (Negative); Urine Ketones 1+ (Negative); Urine Nitrite Negative (Negative); Urine Protein Negative (Negative); Urine Specific Gravity 1.027 (1.002-1.030); Urine Urobilinogen Negative (Negative)
[2021-08-22 15:53] LABS: Urine Amorphous Crystals Present (Absent); Urine Bacteria Absent (Absent); Urine Red Blood Cell Absent (Absent); Urine Squamous Epithelial Cell Present (Absent); Urine White Blood Cell Trace(0-5/hpf) (Absent)
[2021-08-22 18:47] LABS: C Reactive Protein 1.79 mg/L (<8.01); Rheumatoid Factor < 10 IU/mL (<15)
[2021-08-22 21:00] LABS: Erythrocyte Sed Rate 6 mm/Hr (0-29)
[2021-08-23 06:35] LABS: HDL Cholesterol 80.6 mg/dL; Potassium 3.9 mmol/L (3.5-5.0); eGFR CKD-EPI 81.7 (>60)
[2021-08-23 06:45] LABS: TSH Ultra Thyroid Stim Horm 2.42 mcIU/mL (0.34-5.60)
[2021-08-23 07:35] LABS: ABS Basophils 0.1 10^3/ul (0-0.2); ABS Eosinophils 0.3 10^3/ul (0-0.6); ABS Lymphocytes 2.6 10^3/ul (1.0-4.8); ABS Monocytes 0.7 10^3/ul (0-0.8); ABS Neutrophils 4.2 10^3/ul (1.5-7.7); Eosinophil % 3.7 %; Hematocrit 42 % (35-47); Hemoglobin 13.8 g/dL (12.0-16.0); Lymphocyte % 32.6 %; Mean Corpuscular HGB Conc 33 g/dL (31-36); Mean Corpuscular Hemoglobin 30 pg (27-31); Mean Corpuscular Volume 92 fL (80-97); Nucleated Red Blood Cells % 0.1; Platelet Count Platelets clumped. 10^3/uL (150-450); Red Blood Count 4.55 10^6 /uL (3.70-4.87); Red Cell Distribution Width 13 % (10-15); White Blood Count 7.9 10^3/uL (3.5-10.8)
[2021-08-23 08:27] VITALS: BP 143/76
[2021-08-23] MEDS ORDERED: Cholecalciferol (VIT D3) 1,000 unit TAB PO SCH (09:00)
[2021-08-23] MEDS ORDERED: Aspirin EC 81 mg TAB.EC (enteric coated) PO SCH (09:00)
== END 2021-08-23 11:35 | disposition home or self-care (01) ==
LOC: EDHOLD 08:56 → ED 08:56 → SUATTDRO 17:58 → MEDTELE 21:15
PROVIDERS: ADMIT Pediatrics; ATTEND Hospitalist

== ENCOUNTER 2022-06-21 08:09 | Observation (INO) ==
[~2022-06-21 08:09] MED LIST changes: +Buffered Lidocaine 1% SYRIN 1 ml INTRADERM ONE; -Buffered Lidocaine 1% SYRIN* 1 ML/SYRINGE INTRADERM ONE; +Clindamycin 900 MG/50 **NS BAG 900 MG/50 ML BAG IV ONE; -Dexamethasone TAB* 4 MG PO ONE; -DiMENhydriNATE IV* 50 MG/ML VIAL IV PUSH PRN; -Famotidine IV* 10 MG/ML 2 ML (20 mg) IV ONE; -HYDROmorphone INJ1* 1 MG/ML SYRINGE IV PRN; -Lactated Ringers 1000 ML Bag* 1,000 ML IV SCH; +Lactated Ringers 1000 ml BAG 1,000 ML IV SCH; -Naloxone* 0.4 MG/ML 1 ML VIAL IV PRN; -Ondansetron ODT TAB* 4 MG PO ONE; -PROCHLORPERAZINE INJ 5 MG/ML 2 ML VIAL IV PRN; -fentaNYL* 50 MCG/ML 2 ML VIAL (100 MCG VIAL) IV PRN; -oxyCODONE TAB* 5 MG TAB PO PRN
[2022-06-21] MEDS ORDERED: Chlorhexidine MOUTHWASH 0.12% 15 ML UDC ONE (08:33)
[2022-06-21] MEDS ORDERED: Buffered Lidocaine 1% SYRIN 1 ml ONE (08:58)
[2022-06-21] MEDS ORDERED: Midazolam 2 mg/2 ml VIAL 1 mg/ml 2 ml VIAL (2 mg) ONE (09:35)
[2022-06-21] MEDS ORDERED: Lidocaine 2% PF 5 ML VIAL ONE ×2 (09:35→10:29)
[2022-06-21] MEDS ORDERED: Lidocaine 1% w EPI 1:200,000 SDV 30 ML VIAL ONE (09:55)
[2022-06-21] MEDS ORDERED: Thrombin 5,000 UNITS 1 APPLIC KIT - topical use - TOPICAL ONE ×2 (09:55→11:52)
[2022-06-21] MEDS ORDERED: Gelfoam Sponge SIZE 100 SPONGE ONE (09:55)
[2022-06-21] MEDS ORDERED: ceFAZolin VIAL VIAL ONE (09:55)
[2022-06-21] MEDS ORDERED: Rocuronium 50 mg VIAL 10 mg/ml 5 ml VIAL (50 mg) ONE (10:29)
[2022-06-21] MEDS ORDERED: Ondansetron 4 mg VIAL 2 MG/ML 2 ml VIAL ONE (10:31)
[2022-06-21] MEDS ORDERED: Propofol 10 MG/ML 20 ML BTL ONE (10:31)
[2022-06-21] MEDS ORDERED: Dexamethasone IV 4 MG/ML VIAL 1 ml VIAL ONE (10:31)
[2022-06-21] MEDS ORDERED: fentaNYL 100 mcg/2 ml 50 MCG/ML VIAL ONE ×2 (10:47→12:53)
[2022-06-21] MEDS ORDERED: Acetaminophen IV 1 GM/100ML 1,000 MG/100 ML BAG IV ONE (10:54)
[2022-06-21] MEDS ORDERED: Naloxone 0.4 mg VIAL 0.4 mg/ml 1 ml VIAL IV PRN (11:19)
[2022-06-21] MEDS ORDERED: Ondansetron 4 mg VIAL 2 MG/ML 2 ml VIAL IV PRN (11:19)
[2022-06-21] MEDS ORDERED: Fluticasone NASAL SPRAY 50MCG 16 gm SPRAY BTL INTRANASAL PRN (12:29)
[2022-06-21] MEDS ORDERED: Senna TAB 8.6 mg TAB PO PRN (12:39)
[2022-06-21] MEDS: fentaNYL 100 mcg/2 ml 50 MCG/ML VIAL IV PRN ×4 (12:54→13:18)
[2022-06-21] MEDS ORDERED: HYDROmorphone 0.5 MG/0.5 ML SYRINGE IV SLOW PU PRN (13:29)
[2022-06-21] MEDS ORDERED: fentaNYL 100 mcg/2 ml 50 MCG/ML VIAL IV PRN (13:29)
[2022-06-21] MEDS ORDERED: HYDROmorphone 1 MG/1 ML SYRINGE ONE (13:32)
[2022-06-21] MEDS: Lactated Ringers 1000 ml BAG 1,000 ML IV SCH (15:08)
[2022-06-21] MEDS: Morphine ORAL.SOLN 10 mg 2 mg/ml UDC 5 ml (10 mg) PO PRN ×2 (15:24→23:21)
[2022-06-21] MEDS: Morphine 2 MG/ML SYRINGE IV PRN (20:12)
[2022-06-21] MEDS ORDERED: Aspirin EC 81 mg TAB.EC (enteric coated) PO SCH (21:00)
[2022-06-22] MEDS: Morphine 2 MG/ML SYRINGE IV PRN (02:46)
[2022-06-22] MEDS: Lactated Ringers 1000 ml BAG 1,000 ML IV SCH (04:28)
[2022-06-22 11:27] VITALS: BP 101/64
[2022-06-22] MEDS: Morphine ORAL.SOLN 10 mg 2 mg/ml UDC 5 ml (10 mg) PO PRN (12:53)
== END 2022-06-22 17:25 | disposition home or self-care (01) ==
LOC: SSU 08:09 → OR 08:09
PROVIDERS: ADMIT Neurological Surgery; ATTEND Neurological Surgery